=== PATIENT | male | born 1985 | race Caucasian/White ===

== ENCOUNTER → 2017-02-19 | Outpatient (REF) | payer OTHER | LOC: M LAB REF 08:54 | PROVIDERS: ATTEND Physician Assistant | DX: J02.9 Acute pharyngitis, unspecified (principal) ==

== ENCOUNTER → 2017-03-16 | Outpatient (REF) | payer OTHER | LOC: M LAB REF 12:00 | PROVIDERS: ATTEND Physician Assistant Medical | DX: J02.9 Acute pharyngitis, unspecified (principal) ==

== ENCOUNTER 2017-07-22 09:52 | Emergency (ER) | payer OTHER | END 2017-07-22 11:41 | disposition home or self-care (01) | LOC: M ED 09:52 | DX: L05.01 Pilonidal cyst with abscess (principal); F33.9 Major depressive disorder, recurrent, unspecified; Z79.899 Other long term (current) drug therapy; F17.210 Nicotine dependence, cigarettes, uncomplicated | CPT/HCPCS: 87186 ==

== ENCOUNTER 2017-08-13 09:10 | Day surgery (SDC) | payer OTHER ==
[2017-08-13] MEDS ORDERED: fentaNYL 100 MCG/2 ML INJECTION (J3010) As Ordered (09:59)
[2017-08-13] MEDS ORDERED: MIDAZOLAM INJ 2 MG/2 ML VIAL (J2250) As Ordered ×2 (09:59→11:09)
[2017-08-13] MEDS ORDERED: PROPOFOL 200 MG/20 ML VIAL As Ordered (09:59)
[2017-08-13] MEDS: LR 1,000 ML IV (10:16)
[2017-08-13] MEDS ORDERED: KETOROLAC 60 MG/2 ML VIAL (J1885) As Ordered (11:19)
[2017-08-13] MEDS ORDERED: CHLOROPROCAINE 2 % INJ PRES.FREE 20 ML VIAL (J2400) As Ordered (11:19)
[2017-08-13] MEDS ORDERED: ONDANSETRON 4MG/2ML VIAL (J2405) As Ordered ×2 (11:19→11:46)
[2017-08-13] MEDS: ONDANSETRON 4MG/2ML VIAL (J2405) IV (11:45)
[2017-08-13] MEDS ORDERED: PERCOCET 5MG/325MG TAB PO (12:30)
[2017-08-13] MEDS ORDERED: NORCO, ANEXSIA 5/325MG TABLET (HYDROcodone/ACETAMINOPHEN) PO (12:30)
[2017-08-13] MEDS ORDERED: LR 1,000 ML IV (12:30)
[2017-08-13] MEDS ORDERED: fentaNYL 100 MCG/2 ML INJECTION (J3010) IV (12:30)
== END 2017-08-13 13:00 | disposition home or self-care (01) ==
LOC: M SDC 09:10
DX: L05.91 Pilonidal cyst without abscess (principal); F41.9 Anxiety disorder, unspecified; F32.9 Major depressive disorder, single episode, unspecified; Z79.899 Other long term (current) drug therapy; Z72.0 Tobacco use; Z86.19 Personal history of other infectious and parasitic diseases
CPT/HCPCS: 11770

== ENCOUNTER 2017-08-18 17:35 | Emergency (ER) | payer OTHER | END 2017-08-18 18:48 | disposition home or self-care (01) | LOC: M ED 17:35 | DX: L76.21 Postprocedural hemorrhage of skin and subcutaneous tissue following a dermatologic procedure (principal); K59.00 Constipation, unspecified; F17.200 Nicotine dependence, unspecified, uncomplicated | CPT/HCPCS: 99282 ==

== ENCOUNTER 2017-09-12 06:51 | Emergency (ER) | payer OTHER ==
[2017-09-12 08:49] LABS: INFLUENZA A AMPLIFICATION POSITIVE (NEGATIVE); INFLUENZA B AMPLIFICATION NEGATIVE (NEGATIVE)
== END 2017-09-12 09:08 | disposition home or self-care (01) ==
LOC: M ED 06:51
DX: J09.X2 Influenza due to identified novel influenza A virus with other respiratory manifestations (principal); F32.9 Major depressive disorder, single episode, unspecified; F17.210 Nicotine dependence, cigarettes, uncomplicated; Z98.890 Other specified postprocedural states; Z79.899 Other long term (current) drug therapy
CPT/HCPCS: 87502

== ENCOUNTER 2018-07-10 13:10 | Emergency (ER) | payer OTHER ==
[~2018-07-10] VITALS: Ht 175.3 cm; Wt 99.1 kg
[~2018-07-10 13:10] MED LIST: AUGM875T28 PO; BACT800T5 PO; COLA100C5 PO; MIRA3350 PO; NORCOTAB PO; OSEL75CA PO; PARO15TA PO
[2018-07-10] MEDS ORDERED: DULO1CAP3 (13:16)
--- NOTE | 2018-07-10 14:22 | REP ---
CT Head without contrast HISTORY: Headache COMPARISON: None There is no intraparenchymal hemorrhage, acute infarct, mass or midline shift. The ventricular system is normal in appearance. There is no extra cerebral collection. There is no fracture. The visualized sinuses are clear. IMPRESSION: There is no intracranial lesion. Electronically Signed by Axel Miranda MD 07/10/2018 02:13 P
[2018-07-10 14:30] VITALS: BP 118/76
== END 2018-07-10 14:39 | disposition home or self-care (01) ==
LOC: M ED 13:10
DX: R51 Headache (principal); H53.8 Other visual disturbances; F32.9 Major depressive disorder, single episode, unspecified; Z72.0 Tobacco use; Z79.899 Other long term (current) drug therapy

== ENCOUNTER 2018-07-15 11:59 | Emergency (ER) | payer OTHER | END 2018-07-15 13:49 | disposition home or self-care (01) | LOC: M ED 11:59 | DX: K92.0 Hematemesis (principal); F32.9 Major depressive disorder, single episode, unspecified; F17.200 Nicotine dependence, unspecified, uncomplicated; Z79.899 Other long term (current) drug therapy | CPT/HCPCS: 71046 ==

== ENCOUNTER 2018-12-28 11:16 | Emergency (ER) | payer OTHER ==
[~2018-12-28] VITALS: Ht 177.8 cm; Wt 98.7 kg
[~2018-12-28 11:16] MED LIST changes: +DULO1CAP3; +HYDR-3715 PO; -NORCOTAB PO
[2018-12-28] MEDS ORDERED: IBUPROFEN 800 MG TAB PO ONE (12:30)
--- NOTE | 2018-12-28 12:46 | REP ---
SCROTAL ULTRASOUND: Real-time sonographic evaluation of the scrotum and contents performed. Testicles are normal in size and echotexture, right testicle measuring 5.6 x 3.2 x 3.3 cm and left testicle 4.7 x 2.8 x 3.6 cm. There is no testicular mass or torsion. Blood flow is seen in each testicle with duplex Doppler evaluation, RI right testicle 0.59 and left testicle 0.56. There are small bilateral hydroceles greater on the right than on the left. A few tiny intratesticular calcifications are seen bilaterally of doubtful significance. Cyst of the right epididymis measures 5 mm in maximum diameter. IMPRESSION: No testicular mass or torsion. No testicular hematoma. Small bilateral hydroceles right greater than left. Electronically Signed by Antonio Aldrich MD 12/29/2018 11:56 A
[2018-12-28 13:22] VITALS: BP 133/82
== END 2018-12-28 13:26 | disposition home or self-care (01) ==
LOC: M ED 11:16
DX: N50.819 Testicular pain, unspecified (principal); N50.82 Scrotal pain; F32.9 Major depressive disorder, single episode, unspecified; R51 Headache; Z72.0 Tobacco use; Z79.899 Other long term (current) drug therapy

== ENCOUNTER 2019-04-29 09:58 | Emergency (ER) | payer OTHER ==
[~2019-04-29] VITALS: Ht 175.3 cm; Wt 97.7 kg
[~2019-04-29 09:58] MED LIST changes: -DULO1CAP3; +DULO1CAP6
[2019-04-29 09:59] VITALS: BP 140/67
[2019-04-29] MEDS ORDERED: KETOROLAC TROMETHAMINE 10 MG TAB PO ONE (10:30)
--- NOTE | 2019-04-29 10:49 | REP ---
RIGHT SHOULDER, THREE VIEWS: There is no evidence of an acute fracture, dislocation or intrinsic bone disease. IMPRESSION: No fracture or dislocation. Electronically Signed by Antonio Aldrich MD 04/29/2019 05:53 P
[2019-04-29] MEDS ORDERED: CYCL5TAB PO (11:00)
== END 2019-04-29 11:11 | disposition home or self-care (01) ==
LOC: M ED 09:58
DX: S43.401A Unspecified sprain of right shoulder joint, initial encounter (principal); X50.9XXA Other and unspecified overexertion or strenuous movements or postures, initial encounter; Y92.129 Unspecified place in nursing home as the place of occurrence of the external cause; Y93.F2 Activity, caregiving, lifting; Y99.0 Civilian activity done for income or pay; F33.9 Major depressive disorder, recurrent, unspecified; F17.210 Nicotine dependence, cigarettes, uncomplicated; Z79.899 Other long term (current) drug therapy

== ENCOUNTER → 2020-03-03 | Outpatient (CLI) | payer OTHER ==
[~2020-03-03] MED LIST changes: +CHAN1PAK13 PO; +CYCL5TAB PO; +KEFL500C17 PO; -PARO15TA PO; +PARO30TA4 PO; +ROBA750T4 PO
== END ==
LOC: M LABSMTC 09:30
PROVIDERS: ATTEND Pediatrics
DX: Z11.59 Encounter for screening for other viral diseases (principal)

== ENCOUNTER 2020-03-30 06:29 | Emergency (ER) | payer OTHER ==
[~2020-03-30] VITALS: Ht 175.3 cm; Wt 108.0 kg
[~2020-03-30 06:29] MED LIST changes: -CHAN1PAK13 PO; -KEFL500C17 PO; -ROBA750T4 PO
[2020-03-30 06:30] VITALS: BP 131/78
[2020-03-30] MEDS ORDERED: CHAN1PAK13 PO (06:39)
[2020-03-30] MEDS ORDERED: ROBA750T4 PO (07:11)
== END 2020-03-30 07:24 | disposition home or self-care (01) ==
LOC: M ED 06:29
DX: S39.012A Strain of muscle, fascia and tendon of lower back, initial encounter (principal); W18.40XA Slipping, tripping and stumbling without falling, unspecified, initial encounter; Y92.129 Unspecified place in nursing home as the place of occurrence of the external cause; Y93.F9 Activity, other caregiving; Y99.0 Civilian activity done for income or pay; M54.9 Dorsalgia, unspecified; G89.29 Other chronic pain; F41.9 Anxiety disorder, unspecified; F17.210 Nicotine dependence, cigarettes, uncomplicated; Z79.899 Other long term (current) drug therapy

== ENCOUNTER 2020-06-05 02:52 | Emergency (ER) | payer OTHER ==
[~2020-06-05] VITALS: Ht 177.8 cm; Wt 106.8 kg
[~2020-06-05 02:52] MED LIST changes: +CHAN1PAK13 PO; +ROBA750T4 PO
[2020-06-05 06:42] VITALS: BP 132/78
[2020-06-05] MEDS ORDERED: CEPHALEXIN 500 MG CAP PO ONE (06:45)
[2020-06-05] MEDS ORDERED: KEFL500C17 PO (06:47)
== END 2020-06-05 06:52 | disposition home or self-care (01) ==
LOC: M ED 02:52
DX: J02.0 Streptococcal pharyngitis (principal)

== ENCOUNTER → 2020-06-09 | Outpatient (REF) | payer SELFPAY ==
[~2020-06-09] MED LIST changes: +KEFL500C17 PO
== END ==
LOC: M LABSMTC 08:00 → EDSTATUS 13:35 → M LABSMTC 13:44
PROVIDERS: ATTEND Pediatrics
DX: Z20.828 Contact with and (suspected) exposure to other viral communicable diseases (principal)

== ENCOUNTER 2020-09-07 13:15 | Emergency (ER) | payer OTHER ==
[~2020-09-07] VITALS: Ht 177.8 cm; Wt 104.3 kg
--- OUTSIDE RECORDS SUMMARY | 2020-09-07 13:27 | CCD ---
Continuity of Care Document (CCD) Created on: 06/09/2020 [employer] External Reference #: [id number] : [id number] Sex: Male Author Author Sky VIEIRA PA Organization Unknown Address [address] [place] [address] [place] [address] Phone [phone] Care Team Providers Care Systems Support Officer Name Role Phone [employer] AUTM [phone] [employer] [phone] Problems Description No Information Available Social History Type Date Description Comments Sex Unknown ETOH Use Drinks Alcoholic Beverages Rarel y Tobacco Use Start: Unknown Patient is a current smoker, smo kes every day 1 PPD Smoking Status Reviewed: 06/09/20 Patient is a current smoker, smokes every day 1 PPD Allergies, Adverse Reactions, Alerts Description No Known Drug Allergies Medications Active Medications SIG Qnty Indications Ordering Provide r Date Prednisone 20mg Tablets 1 tabs three x daily for 5 days 15tabs J20.9 Faisal Nj JR., M.D. Duloxetine HCL 60mg Caps DR Briggs qd Unknown Cephalexin 500mg Capsules Unknown Tylenol Cold/Flu Severe [id number] Tablets Last dose last night Unknown 00/0 000 History Medications No Active Medications Unknown - 06/09/2020 Immunizations Description No Information Available Vital Signs Date Vital Result Comment 06/09/2020 10:26am BP Systolic 136 mmHg BP Diastolic 86 mmHg Heart Rate 82 /min Respiratory Rate 14 /min O2 % BldC Oximetry 97 % Body Temperature 98.4 F Weight 235.00 lb Pain Level 5 03/09/2016 8:13am BP Systolic 120 mmHg BP Diastolic 84 mmHg Heart Rate 65 /min Respiratory Rate 18 /min O2 % BldC Oximetry 98 % Body Temperature 97.1 F Weight 200.00 lb Height 69 inches 5'9" BMI (Body Mass Index) 29.5 kg/m2 Pain Level 8 Results Description No Information Available Procedures Description No Information Available Medical Devices Description No Information Available Encounters Type Date Location Provider Dx Diagnosis Office Visit 06/09/2020 10:15a Main Office ERNESTINA Horn J20.9 Acute bronchitis, unspecified Z20.828 Contact w and exposure to ot h viral communicable diseases Assessments Date Code Description Provider 06/09/2020 J20.9 Acute bronchitis, unspecified ERNESTINA May 06/09/2020 Z20.828 Contact with and (be spected) exposure to other viral communicable diseases ERNESTINA Horn Plan of Treatment No Information Available Functional Status Description No Information Available Mental Status Description No Information Available Referrals Description No Information Available
--- OUTSIDE RECORDS SUMMARY | 2020-09-07 13:27 | CCD ---
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 Name Role Phone Sylvie LORENZANA MD Unavailable Unavailable Sylvie LORENZANA MD Unavailable Unavailable Sylvie LORENZANA MD Unavailable Unavailable Sylvie LORENZANA MD Unavailable Unavailable Sylvie LORENZANA MD Unavailable Unavailable Sylvie LORENZANA MD Unavailable Unavailable Sylvie LORENZANA MD Unavailable Unavailable Sylvie LORENZANA MD Unavailable Unavailable Sylvie LORENZANA MD Unavailable Unavailable Sylvie LORENZANA MD Unavailable Unavailable Sylvie LORENZANA MD Unavailable Unavailable Sylvie LORENZANA MD Unavailable Unavailable Sylvie LORENZANA MD Unavailable Unavailable Sylvie LORENZANA MD Unavailable Unavailable Sylvie LORENZANA MD Unavailable Unavailable Sylvie LORENZANA MD Unavailable Unavailable Sylvie LORENZANA MD Unavailable Unavailable Sylvie LORENZANA MD Unavailable Unavailable Sylvie LORENZANA MD Unavailable Unavailable Sylvie LORENZANA MD Unavailable Unavailable Sylvie LORENZANA MD Unavailable Unavailable Sylvie LORENZANA MD Unavailable Unavailable Sylvie LORENZANA MD Unavailable Unavailable Sylvie LORENZANA MD Unavailable Unavailable Sylvie LORENZANA MD Unavailable Unavailable Sylvie LORENZANA MD Unavailable Unavailable Sylvie LORENZANA MD Unavailable Unavailable Sylvie LORENZANA MD Unavailable Unavailable Sylvie LORENZANA MD Unavailable Unavailable Sylvie LORENZANA MD Unavailable Unavailable Sylvie LORENZANA MD Unavailable Unavailable Sylvie LORENZANA MD Unavailable Unavailable Sylvie LORENZANA MD Unavailable Unavailable Sylvie LORENZANA MD Unavailable Unavailable Sylvie LORENZANA MD Unavailable Unavailable Sylvie LORENZANA MD Unavailable Unavailable Sylvie LORENZANA MD Unavailable Unavailable Sylvie LORENZANA MD Unavailable Unavailable Sylvie LORENZANA MD Unavailable Unavailable Sylvie LORENZANA MD Unavailable Unavailable Sylvie LORENZANA MD Unavailable Unavailable Sylvie LORENZANA MD Unavailable Unavailable Sylvie LORENZANA MD Unavailable Unavailable Sylvie LORENZANA MD Unavailable Unavailable Sylvie LORENZANA MD Unavailable Unavailable Sylvie LORENZANA MD Unavailable Unavailable Sylvie LORENZANA MD Unavailable Unavailable Sylvie LORENZANA MD Unavailable Unavailable Sylvie LORENZANA MD Unavailable Unavailable Sylvie LORENZANA MD Unavailable Unavailable Sylvie LORENZANA MD Unavailable Unavailable Sylvie LORENZANA MD Unavailable Unavailable Sylvie LORENZANA MD Unavailable Unavailable Sylvie LORENZANA MD Unavailable Unavailable Sylvie LORENZANA MD Unavailable Unavailable Sylvie LORENZANA MD Unavailable Unavailable Sylvie LORENZANA MD Unavailable Unavailable Sylvie LORENZANA MD Unavailable Unavailable Sylvie LORENZANA MD Unavailable Unavailable Sylvie LORENZANA MD Unavailable Unavailable Sylvie LORENZANA MD Unavailable Unavailable Sylvie LORENZANA MD Unavailable Unavailable Sylvie LORENZANA MD Unavailable Unavailable Sylvie LORENZANA MD Unavailable Unavailable Sylvie LORENZANA MD Unavailable Unavailable Sylvie LORENZANA MD Unavailable Unavailable Sylvie LORENZANA MD Unavailable Unavailable Sylvie LORENZANA MD Unavailable Unavailable Sylvie LORENZANA MD Unavailable Unavailable Sylvie LORENZANA MD Unavailable Unavailable Sylvie LORENZANA MD Unavailable Unavailable Sylvie LORENZANA MD Unavailable Unavailable Sylvie LORENZANA MD Unavailable Unavailable Sylvie LORENZANA MD Unavailable Unavailable Sylvie LORENZANA MD Unavailable Unavailable Sylvie LORENZANA MD Unavailable Unavailable Jacqueline Fowler [facility], PA-C Unavailable Unavailabl e Fish, Jacqueline [facility] Unavailable Unavailabl e Fish, [facility]eline [facility] Unavailable Unavailabl e Fish, [facility] Unavailable Unavailabl e Fish, [facility], [facility]C Unavailable Unavailabl e Fish, [facility], PA[facility]C Unavailable Unavailabl e Fish, [facility], PA[facility]C Unavailable Unavailabl e Fish, [facility], PA[facility]C Unavailable Unavailabl e Fish, [facility], PA[facility]C Unavailable Unavailabl e Fish, Jacqueline Medina [facility], PA-C Unavailable Unavailabl e Fish, [facility]eline [facility], [facility]C Unavailable Unavailabl e Fish, [facility]eline [facility], [facility]C Unavailable Unavailabl e Fish, [facility], PA-C Unavailable Unavailabl e Fish, [facility], PA-C Unavailable Unavailabl e Fish, [facility], PA-C Unavailable Unavailabl e Fish, [facility], PA-C Unavailable Unavailabl e Fish, [facility], PA-C Unavailable Unavailabl e Fish, [facility], PA-C Unavailable Unavailabl e Fish, [facility], PA-C Unavailable Unavailabl e Fish, [facility], PA-C Unavailable Unavailabl e Fish, [facility], PA-C Unavailable Unavailabl e Fish, [facility], PA-C Unavailable Unavailabl e Fish, [facility], PA-C Unavailable Unavailabl e Fish, [facility], PA-C Unavailable Unavailabl e Fish, [facility], PA-C Unavailable Unavailabl e Fish, [facility], PA-C Unavailable Unavailabl e Fish, [facility], PA-C Unavailable Unavailabl e Fish, [facility], PA-C Unavailable Unavailabl e Fish, [facility], PA-C Unavailable Unavailabl e Fish, [facility], PA-C Unavailable Unavailabl e Fish, [facility], PA-C Unavailable Unavailabl e Fish, [facility], PA-C Unavailable Unavailabl e Fish, [facility], PA-C Unavailable Unavailabl e PeñaCalista Unavailable Unavailable PeñaCalista Unavailable Unavailable PeñaCalista Unavailable Unavailable PeñaCalista Unavailable Unavailable PeñaCalista Unavailable Unavailable PeñaCalista Unavailable Unavailable PeñaCalista Unavailable Unavailable PeñaCalista Unavailable Unavailable PeñaCalista PA Unavailable Unavailable PeñaCalista Unavailable Unavailable Re-disclosure Warning The records that you are about to access may contain information from federally-assisted alcohol or drug abuse programs. If such information is present, then the following federally mandated warning applies: This information has been disclosed to you from records protected by federal confidentiality rules (42 CFR part 2). The federal rules prohibit you from making any further disclosure of this information unless further disclosure is expressly permitted by the written consent of the person to whom it pertains or as otherwise permitted by 42 CFR part 2. A general authorization for the release of medical or other information is NOT sufficient for this purpose. The Federal rules restrict any use of the information to criminally investigate or prosecute any alcohol or drug abuse patient.The records that you are about to access may contain highly sensitive health information, the redisclosure of which is protected by Article 27-F of the [facility] Public Health law. If you continue you may have access to information: Regarding HIV / AIDS; Provided by facilities licensed or operated by the [facility] Office of Mental Health; or Provided by the [facility] Office for People With Developmental Disabilities. If such information is present, then the following [facility] mandated warning applies: This information has been disclosed to you from confidential records which are protected by state law. State law prohibits you from making any further disclosure of this information without the specific written consent of the person to whom it pertains, or as otherwise permitted by law. Any unauthorized further disclosure in violation of state law may result in a fine or detention sentence or both. A general authorization for the release of medical or other information is NOT sufficient authorization for further disc losure. Family History Family Member Name Family Member Gender Family Member Status Date o f Status Description Data Source(s) Unknown Male Problem [facility] ) Unknown Unknown Problem [facility] ([facility], [facility]) Encounters Encounter Providers Location Date Indications Data Source(s ) Outpatient Attender: Claire thomas 06/09/2020 09:15:00 AM EST [facility] ([facility]) OFFICE OUTPATIENT NEW 30 MINUTES Attender: Carol RICHARDSON PA-C Physical Therapy 05/30/2020 12:30:00 PM EST [facility] ([facility] ) Outpatient Attender: AMANDA LORENZANA MD [facility] 01:30:00 PM EDT [facility] ([facility] Medications Medication Brand Name Start Date Product Form Dose Route Admi nistrative Instructions Pharmacy Instructions Status Indications Reaction Description Data Source(s) 250 mg 07/25/2020 12:00:00 AM EST tablet 6 TAKE 2 TABLETS BY MOUTH AT ONCE ON DAY 1 THEN TAKE 1 DAILY DAYS 2-5 TAKE 2 TABLETS BY MOUTH AT ONCE ON DAY 1 THEN TAKE 1 DAILY DAYS 2-5 SOLD: 07/25/2020 [facility] 20 mg 07/25/2020 12:00:00 AM EST tablet 7 TAKE ONE TABLET BY MOUTH EVERY DAY FOR 7 DAYS TAKE ONE TABLET BY MOUTH EVERY DAY FOR 7 DAYS SOLD: 07/25/2020 [facility] 90 mcg/actuation 07/25/2020 12:00:00 AM EST HFA aerosol inha ler 8 INHALE TWO PUFFS BY MOUTH THREE TIMES A DAY FOR 10 DAYS INHALE TWO PUFFS BY MOUTH THREE TIMES A DAY FOR 10 DAYS SOLD: 07/25/2020 [facility] 60 mg 07/03/2020 12:00:00 AM EST capsule,delayed release (DR/EC) 90 TAKE ONE CAPSULE BY MOUTH EVERY DAY TAKE ONE CAPSULE BY MOUTH EVERY DAY SOLD: 07/10/2020 [facility] Prednisone 20 MG Oral Tablet Prednisone 06/09/2020 12:00:00 AM EST active [facility] ([facility]) 20 mg 06/09/2020 12:00:00 AM EST tablet 15 TAKE ONE TABLET BY MOUTH THREE TIMES A DAY FOR 5 DAYS TAKE ONE TABLET BY MOUTH THREE TIMES A DAY FOR 5 DAYS SOLD: 06/09/2020 [facility] No Active Medications 06/09/2020 12:00:00 AM EST completed [facility] ([facility]) Cephalexin 500 MG Oral Capsule CEPHALEXIN 06/05/2020 12:00:00 AM EST capsule 19 TAKE 1 CAPSULE [500MG] BY MOUTH EVERY 12 HOURS TAKE 1 CAPSULE [500MG] BY MOUTH EVERY 12 HOURS SOLD: 06/05/[address] [facility] [address] [facility] 1 mg 04/04/2020 12:00:00 AM EDT tablet 56 TAKE BY MOUTH DIRECTED TAKE BY MOUTH DIRECTED SOLD: 04/05/2020 [facility] 750 mg 03/30/2020 12:00:00 AM EDT tablet 30 TAKE ONE TABLET BY MOUTH THREE TIMES A DAY TAKE ONE TABLET BY MOUTH THREE TIMES A DAY SOLD: 03/31/2020 [facility] 1 mg 01/03/2020 12:00:00 AM EDT tablet 56 TAKE BY MOUTH DIRECTED TAKE BY MOUTH DIRECTED SOLD: 03/08/2020 [facility] 1 mg 01/03/2020 12:00:00 AM EDT tablet 56 TAKE BY MOUTH DIRECTED TAKE BY MOUTH DIRECTED SOLD: 02/07/2020 [facility] 1 mg 01/03/2020 12:00:00 AM EDT tablet 56 TAKE BY MOUTH DIRECTED TAKE BY MOUTH DIRECTED SOLD: 01/09/2020 [facility] 20 mg 10/02/2019 12:00:00 AM EST tablet 7 TAKE ONE TABLET BY MOUTH EVERY DAY FOR 7 DAYS TAKE ONE TABLET BY MOUTH EVERY DAY FOR 7 DAYS SOLD: 10/02/2019 [facility] 1 mg 09/19/2019 12:00:00 AM EST tablet 56 TAKE BY MOUTH DIRECTED TAKE BY MOUTH DIRECTED SOLD: 09/20/2019 [facility] 1 mg 09/19/2019 12:00:00 AM EST tablet 56 TAKE BY MOUTH DIRECTED TAKE BY MOUTH DIRECTED SOLD: 11/05/2019 [facility] 1 mg 09/19/2019 12:00:00 AM EST tablet 56 TAKE BY MOUTH DIRECTED TAKE BY MOUTH DIRECTED SOLD: 12/08/2019 [facility] 0.5 mg (11)- 1 mg (42) 08/21/2019 12:00:00 AM EST tablets,do se pack 53 TAKE BY MOUTH DIRECTED TAKE BY MOUTH DIRECTED SOLD: 08/21/2019 [facility] Chantix Starting Month Luca Chantix Starting Month [facility] 2019 12:00:00 AM EST active MED[facility] ([facility] Chantix Continuing Month Luca Chantix Continuing Month [facility] 12:00:00 AM EST active [facility] ([facility] 60 mg 06/29/2019 12:00:00 AM EST capsule,delayed release (DR/EC) 30 TAKE ONE CAPSULE BY MOUTH EVERY DAY TAKE ONE CAPSULE BY MOUTH EVERY DAY SOLD: 01/09/2020 [facility] 60 mg 06/29/2019 12:00:00 AM EST capsule,delayed release (DR/EC) 30 TAKE ONE CAPSULE BY MOUTH EVERY DAY TAKE ONE CAPSULE BY MOUTH EVERY DAY SOLD: 12/08/2019 [facility] 60 mg 06/29/2019 12:00:00 AM EST capsule,delayed release (DR/EC) 30 TAKE ONE CAPSULE BY MOUTH EVERY DAY TAKE ONE CAPSULE BY MOUTH EVERY DAY SOLD: 10/02/2019 [facility] 60 mg 06/29/2019 12:00:00 AM EST capsule,delayed release (DR/EC) 30 TAKE ONE CAPSULE BY MOUTH EVERY DAY TAKE ONE CAPSULE BY MOUTH EVERY DAY SOLD: 05/04/2020 [facility] 60 mg 06/29/2019 12:00:00 AM EST capsule,delayed release (DR/EC) 30 TAKE ONE CAPSULE BY MOUTH EVERY DAY TAKE ONE CAPSULE BY MOUTH EVERY DAY SOLD: 03/08/2020 [facility] 60 mg 06/29/2019 12:00:00 AM EST capsule,delayed release (DR/EC) 30 TAKE ONE CAPSULE BY MOUTH EVERY DAY TAKE ONE CAPSULE BY MOUTH EVERY DAY SOLD: 06/05/2020 [facility] 60 mg 06/29/2019 12:00:00 AM EST capsule,delayed release (DR/EC) 30 TAKE ONE CAPSULE BY MOUTH EVERY DAY TAKE ONE CAPSULE BY MOUTH EVERY DAY SOLD: 02/07/2020 [facility] 60 mg 06/29/2019 12:00:00 AM EST capsule,delayed release (DR/EC) 30 TAKE ONE CAPSULE BY MOUTH EVERY DAY TAKE ONE CAPSULE BY MOUTH EVERY DAY SOLD: 11/05/2019 [facility] 60 mg 06/29/2019 12:00:00 AM EST capsule,delayed release (DR/EC) 30 TAKE ONE CAPSULE BY MOUTH EVERY DAY TAKE ONE CAPSULE BY MOUTH EVERY DAY SOLD: 04/05/2020 [facility] Insurance Providers Payer name Policy type / Coverage type Policy ID Covered constitution party ID Covered constitution party's relationship to beckwith Policy Beckwith Plan Information R [facility] [id number] [place]2 [id number] SELF PAY SELF PAY ONLY [id number] SP [id number] PMA MANAGEMENT PAMELA [facility] [id number] SP [id number] PMA MANAGEMENT PAMELA [facility] [id number] SP [id number] [facility] [id number] [place]2 [id number] [facility] O [id number] S [id number] [employer] [id number] [place] [id number] [employer] [id number] [place] [id number] [employer] (H[employer]) [id number] Fa jj Dependent [id number] [employer] ([employer]) [id number] Fa jj Dependent [id number] [employer] [employer] Dependent [employer] [id number] SPO [id number] [employer] [id number] SP [id number] [facility] [employer] [place] [id number] SP [id number] WC-PENDING [id number] SP [id number] FIVE [employer] [id number] SP [id number] SELF PAY UNAVAILABLE SP UNAVAILA BLE [facility] [id number] SP [id number] Surgeries/Procedures Procedure Description Date Indications Data Source(s) [facility] FOOT COMPLETE MINIMUM 3 VIEWS 05/30/2020 12:00:0 0 AM EST [facility] ([facility]) Results ID Date Data Source [id number] 08/28/2020 07:30:00 AM EST [facility] Name Value Range Interpretation Code Description Data Jacqueline rce(s) Supporting Document(s) SARS coronavirus 2 RNA Not Detected [facility] [place] This lab was ordered by [facility] and reported by [facility]. ID Date Data Source [id number] 08/21/2020 08:00:00 AM EST [facility] Name Value Range Interpretation Code Description Data Jacqueline rce(s) Supporting Document(s) SARS coronavirus 2 RNA Not Detected [facility] [place] This lab was ordered by [facility] and reported by [facility]. ID Date Data Source [id number] 08/17/2020 12:00:00 AM EST [facility] Name Value Range Interpretation Code Description Data Jacqueline rce(s) Supporting Document(s) SARS coronavirus 2 Ag Negative [facility] This lab was ordered by [facility] and reported by [facility]. ID Date Data Source [id number] 08/14/2020 12:35:00 PM EST [facility] Name Value Range Interpretation Code Description Data Jacqueline rce(s) Supporting Document(s) SARS coronavirus 2 RNA Not Detected [facility] [place] This lab was ordered by [facility] and reported by [facility]. ID Date Data Source [id number] 08/10/2020 12:00:00 AM EST [facility] Name Value Range Interpretation Code Description Data Jacqueline rce(s) Supporting Document(s) SARS-CoV2 Rapid Antigen Negative [facility] This lab was ordered by [facility] and reported by [facility]. ID Date Data Source [id number] 08/07/2020 09:00:00 AM EST [facility] Name Value Range Interpretation Code Description Data Jacqueline rce(s) Supporting Document(s) SARS coronavirus 2 RNA Not Detected [facility] [place] This lab was ordered by [facility] and reported by [facility]. ID Date Data Source [id number] 07/31/2020 05:30:00 AM EST [facility] Name Value Range Interpretation Code Description Data Jacqueline rce(s) Supporting Document(s) SARS coronavirus 2 RNA Not Detected [facility] [place] This lab was ordered by [facility] and reported by [facility]. ID Date Data Source [id number] 07/03/2020 12:10:00 PM EST [facility] Name Value Range Interpretation Code Description Data Jacqueline rce(s) Supporting Document(s) SARS coronavirus 2 RNA [facility] This lab was ordered by [facility] and reported by [facility]. ID Date Data Source [id number] 06/14/2020 12:00:00 AM EST [facility] Name Value Range Interpretation Code Description Data Jacqueline rce(s) Supporting Document(s) SARS-CoV2 Rapid Antigen [facility] This lab was ordered by [facility] and reported by [facility]. ID Date Data Source [id number] 06/09/2020 01:35:00 PM EST [facility] Name Value Range Interpretation Code Description Data Jacqueline rce(s) Supporting Document(s) SARS coronavirus 2 RNA [facility] This lab was ordered by [facility] and reported by [facility]. ID Date Data Source [id number] 06/09/2020 12:00:00 AM EST [facility] Name Value Range Interpretation Code Description Data Jacqueline rce(s) Supporting Document(s) SARS coronavirus 2 Ag [facility] This lab was ordered by [facility] and reported by [facility]. ID Date Data Source [id number] 06/05/2020 08:00:00 AM EST [facility] Name Value Range Interpretation Code Description Data Jacqueline rce(s) Supporting Document(s) SARS coronavirus 2 RNA [facility] This lab was ordered by [facility] and reported by [facility]. ID Date Data Source [id number] 05/29/2020 02:00:00 PM EST [facility] Name Value Range Interpretation Code Description Data Jacqueline rce(s) Supporting Document(s) SARS coronavirus 2 RNA [facility] This lab was ordered by [facility] and reported by [facility]. ID Date Data Source [id number] 05/22/2020 01:00:00 PM EDT [facility] Name Value Range Interpretation Code Description Data Jacqueline rce(s) Supporting Document(s) SARS coronavirus 2 RNA [facility] This lab was ordered by [facility] and reported by [facility]. ID Date Data Source [id number] 05/15/2020 10:28:00 AM EDT [facility] Name Value Range Interpretation Code Description Data Jacqueline rce(s) Supporting Document(s) SARS coronavirus 2 RNA [facility] This lab was ordered by [facility] and reported by [facility]. ID Date Data Source [id number] 05/08/2020 08:00:00 AM EDT [facility] Name Value Range Interpretation Code Description Data Jacqueline rce(s) Supporting Document(s) SARS coronavirus 2 RNA [facility] This lab was ordered by [facility] and reported by [facility]. ID Date Data Source [id number] 05/01/2020 10:00:00 AM EDT [facility] Name Value Range Interpretation Code Description Data Jacqueline rce(s) Supporting Document(s) SARS coronavirus 2 RNA [facility] This lab was ordered by [facility] and reported by [facility]. ID Date Data Source [id number] 04/17/2020 01:15:00 PM EDT [facility] Name Value Range Interpretation Code Description Data Jacqueline rce(s) Supporting Document(s) SARS coronavirus 2 RNA [facility] This lab was ordered by [facility] and reported by [facility]. ID Date Data Source [id number] 04/05/2020 08:00:00 AM EDT [facility] Name Value Range Interpretation Code Description Data Jacqueline rce(s) Supporting Document(s) SARS coronavirus 2 RNA [facility] This lab was ordered by [facility] and reported by [facility]. ID Date Data Source [id number] 03/27/2020 09:32:00 AM EDT [facility] Name Value Range Interpretation Code Description Data Jacqueline rce(s) Supporting Document(s) SARS coronavirus 2 RNA [facility] This lab was ordered by [facility] and reported by [facility]. ID Date Data Source [id number] 03/20/2020 08:34:00 AM EDT [facility] Name Value Range Interpretation Code Description Data Jacqueline rce(s) Supporting Document(s) SARS coronavirus 2 RNA [facility] This lab was ordered by [facility] and reported by [facility]. ID Date Data Source [id number] 03/03/2020 09:30:00 AM EDT [facility] ([facility] Name Value Range Interpretation Code Description Data Jacqueline rce(s) Supporting Document(s) Laboratory test finding (navigational concept) Laboratory test r esult Normal (applies to non-numeric results) [facility] ([facility] A false negative result may occur if a s pecimen is improperly collected, transported or handled. False negative results may also occur if inadequate numbers of organisms are present in the specimen. As with any molecular test, mutations within the target regions of Xpert Xpress SARS-CoV-2 could affect primer and/or probe binding resulting in failure to detect the presence of virus. This test cannot rule out diseases caused by other bacterial or viral pathogens. DISCLAIMER: Testing was performed using the [employer] SARS-CoV-2 test. This test was developed and its performance characteristics determined by [employer]. This test has not been FDA cleared or approved. This test has been authorized by FDA under an Emergency Use Authorization (EUA). This test is only authorized for the duration of time the declaration that circumstances exist justifying the authorization of the emergency use of in vitro diagnostic tests for detection of SARS-CoV-2 virus and/or diagnosis of COVID-19 infection under section 564(b)(1) of the Act, 21 U.S.C. 360bbb-3(b)(1), unless the authorization is terminated or revoked sooner. ID Date Data Source [id number] 02/14/2020 10:00:00 AM EDT [facility] Name Value Range Interpretation Code Description Data Jacqueline rce(s) Supporting Document(s) SARS coronavirus 2 RNA [facility] This lab was ordered by [facility] and reported by [facility]. ID Date Data Source [id number] 02/07/2020 11:02:00 AM EDT [facility] Name Value Range Interpretation Code Description Data Jacqueline rce(s) Supporting Document(s) SARS coronavirus 2 RNA [facility] This lab was ordered by [facility] and reported by [facility]. ID Date Data Source [id number] 01/31/2020 01:10:00 PM EDT [facility] Name Value Range Interpretation Code Description Data Jacqueline rce(s) Supporting Document(s) SARS coronavirus 2 RNA [facility] This lab was ordered by [facility] and reported by [facility]. ID Date Data Source [id number] 01/24/2020 09:06:00 AM EDT [facility] Name Value Range Interpretation Code Description Data Jacqueline rce(s) Supporting Document(s) SARS CORONAVIRUS 2 RNA [facility] This lab was ordered by [facility] and reported by [facility]. ID Date Data Source [id number] 01/17/2020 02:05:00 PM EDT [facility] Name Value Range Interpretation Code Description Data Jacqueline rce(s) Supporting Document(s) SARS CORONAVIRUS 2 RNA [facility] This lab was ordered by [facility] and reported by [facility]. ID Date Data Source [id number] 01/10/2020 06:00:00 AM EDT [facility] Name Value Range Interpretation Code Description Data Jacqueline rce(s) Supporting Document(s) SARS CORONAVIRUS 2 RNA [facility] This lab was ordered by [facility] and reported by [facility]. ID Date Data Source [id number] 01/03/2020 11:25:00 AM EDT [facility] Name Value Range Interpretation Code Description Data Jacqueline rce(s) Supporting Document(s) SARS CORONAVIRUS 2 RNA [facility] This lab was ordered by [facility] and reported by [facility]. ID Date Data Source [id number] 12/30/2019 05:30:00 AM EDT [facility] Name Value Range Interpretation Code Description Data Jacqueline rce(s) Supporting Document(s) SARS CORONAVIRUS 2 RNA [facility] This lab was ordered by [facility] and reported by [facility]. ID Date Data Source [id number] 12/27/2019 05:30:00 AM EDT [facility] Name Value Range Interpretation Code Description Data Jacqueline rce(s) Supporting Document(s) SARS CORONAVIRUS 2 RNA [facility] This lab was ordered by [facility] and reported by [facility]. ID Date Data Source [id number] 12/23/2019 06:12:00 AM EDT [facility] Name Value Range Interpretation Code Description Data Jacqueline rce(s) Supporting Document(s) SARS CORONAVIRUS 2 RNA [facility] This lab was ordered by [facility] and reported by [facility]. ID Date Data Source [id number] 12/21/2019 06:00:00 AM EDT [facility] Name Value Range Interpretation Code Description Data Jacqueline rce(s) Supporting Document(s) SARS CORONAVIRUS 2 RNA [facility] This lab was ordered by [facility] and reported by [facility]. ID Date Data Source [id number] 12/15/2019 11:14:00 AM EDT [facility] Name Value Range Interpretation Code Description Data Jacqueline rce(s) Supporting Document(s) SARS CORONAVIRUS 2 RNA [facility] This lab was ordered by [facility] and reported by [facility]. ID Date Data Source [id number] 12/06/2019 10:29:00 AM EDT [facility] Name Value Range Interpretation Code Description Data Jacqueline rce(s) Supporting Document(s) SARS CORONAVIRUS 2 RNA [facility] This lab was ordered by [facility] and reported by [facility]. Procedure Vital Signs ID Date Data Source UNK Name Value Range Interpretation Code Description Data Source(s) Body weight 235.00 [lb_av] 235.00 [lb_av] MEDEN T ([facility], [facility]) Body temperature 98.4 [degF] 98.4 [degF] MEDENT ([facility], [facility]) Oxygen saturation in Arterial blood by Pulse oximetry 97 % 97 % MEDENT ([facility], [facility]) Respiratory rate 14 /min 14 /min MEDENT ( [facility], [facility]) Heart rate 82 /min 82 /min MEDENT ([facility], [facility]) Diastolic blood pressure 86 mm[Hg] 86 mm[Hg] MEDENT ([facility]) Systolic blood pressure 136 mm[Hg] 136 mm[Hg] M EDENT ([facility]) Oxygen saturation in Arterial blood by Pulse oximetry 98 % 98 % MEDENT ([facility] Body mass index (BMI) [Ratio] 34.0 kg/m2 34.0 k g/m2 MEDENT ([facility] [place] body weight 160 [lb_av] 160 [lb_av] MEDEN T ([facility] Body weight 235.00 [lb_av] 235.00 [lb_av] MEDEN T ([facility] Body height 69.75 [in_i] 69.75 [in_i] MEDENT ([facility] 5'9.75" Respiratory rate 18 /min 18 /min MEDENT ( [facility] Heart rate 84 /min 84 /min MEDENT ([facility] Body temperature 97.8 [degF] 97.8 [degF] MEDENT ([facility] Diastolic blood pressure 72 mm[Hg] 72 mm[Hg] MEDENT ([facility] Systolic blood pressure 114 mm[Hg] 114 mm[Hg] M EDENT ([facility] Oxygen saturation in Arterial blood by Pulse oximetry 96 % 96 % MEDENT ([facility] Body mass index (BMI) [Ratio] 31.2 kg/m2 31.2 k g/m2 MEDENT ([facility] [place] body weight 160 [lb_av] 160 [lb_av] MEDEN T ([facility] Body weight 216.00 [lb_av] 216.00 [lb_av] MEDEN T ([facility] Body height 69.75 [in_i] 69.75 [in_i] MEDENT ([facility] 5'9.75" Respiratory rate 18 /min 18 /min MEDENT ( [facility] Heart rate 100 /min 100 /min CARLY ([facility] Body temperature 98.9 [degF] 98.9 [degF] CARLY ([facility] Diastolic blood pressure 72 mm[Hg] 72 mm[Hg] CARLY ([facility] Systolic blood pressure 120 mm[Hg] 120 mm[Hg] Donaldo MCGRATH ([facility]
--- OUTSIDE RECORDS SUMMARY | 2020-09-07 13:27 | CCD | Continuity of Care Document ---
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 Name Role Phone MalcolmNahid DO AUTM [phone] Problems Description No Information Available Social History Type Date Description Comments Sex Unknown ETOH Use Denies alcohol use Tobacco Use Start: Unknown Patient is a current smoker, smo kes every day 1/2 ppd Allergies, Adverse Reactions, Alerts Description No Known Drug Allergies Medications Active Medications SIG Qnty Indications Ordering Provide r Date Duloxetine HCL 60mg Caps DR Part Unknown Immunizations Description No Information Available Vital Signs Description No Information Available Results Description No Information Available Procedures Date Code Description Status 05/30/2020 05111 X-Ray Foot Complete Completed Medical Devices Description No Information Available Encounters Type Date Location Provider Dx Diagnosis Office Visit 05/30/2020 1:30p [place] Carol Fowler PA-C M72.2 Plantar fascial fibromatosis Assessments Date Code Description Provider 05/30/2020 M72.2 Plantar fascial fibromatosis Vitaliy Fowler PA-C Plan of Treatment 05/30/2020 - Carol Fowler PA-C* M72.2 Plantar fascial fibromatosis* Follow up: * 4 week rt foot vic with [facility] Functional Status Description No Information Available Mental Status Description No Information Available Referrals Description No Information Available
--- OUTSIDE RECORDS SUMMARY | 2020-09-07 13:27 | CCD | Continuity of Care Document ---
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 Name Role Phone [employer]Sky RPA AUTM [phone] [place] [employer] AUTM [phone] Problems Description No Information Available Social History [...] Cephalexin 500mg Capsules Unknown Tylenol Cold/Flu Severe [id number] Tablets Last dose last night Unknown 00/0 [...] communicable diseases ERNESTINA Horn Plan of Treatment 06/09/2020 - ERNESTINA Horn* J20.9 Acute bronchitis, unspecified* New Medication:* Prednisone 20 mg - 1 tabs three x daily for 5 days * Z20.828 Contact with and (suspected) exposure to other viral communicable diseases* Comments:* POC rapid COVID neg today Functional Status Description No Information Available Mental Status Description No Information Available Referrals Description No Information Available
--- OUTSIDE RECORDS SUMMARY | 2020-09-07 13:35 | CCD ---
Author Author [facility] Organization [facility] Address Unknown Phone Unavailable Care Team Providers Care Staff Radiographer Name Role Phone Sylvie LORENZANA MD Unavailable [...] Sylvie LORENZANA MD Unavailable Unavailable Jacqueline Fowler [facility], PA-C Unavailable Unavailabl e Fish, [facility] Unavailable Unavailabl e Fish, [facility] Unavailable Unavailabl e Fish, [facility] Unavailable Unavailabl e Fish, [facility] Unavailable Unavailabl e Fish, [facility] Unavailable Unavailabl e Fish, [facility] Unavailable Unavailabl e Fish, [facility] Unavailable Unavailabl e Fish, [facility] Unavailable Unavailabl e Fish, Jacqueline Medina [facility], PA-C Unavailable Unavailabl e Fish, [facility] Unavailable Unavailabl e Fish, [facility] Unavailable Unavailabl e Fish, [facility], PA-C Unavailable Unavailabl e Fish, [facility], PA-C Unavailable Unavailabl e Fish, [facility], PA-C Unavailable Unavailabl e Fish, [facility], PA-C Unavailable Unavailabl e Fish, [facility], PA-C Unavailable Unavailabl e Fish, [facility], PA-C Unavailable Unavailabl e Fish, [facility], PA-C Unavailable Unavailabl e Fish, [facility], PA-C Unavailable Unavailabl e Fish, [facility], PA-C Unavailable Unavailabl e Fish, [facility], PA-C Unavailable Unavailabl e Fish, [facility], PA-C Unavailable Unavailabl e Fish, [facility], PA-C Unavailable Unavailabl e Fish, [facility], PA-C Unavailable Unavailabl e Fish, [facility], PA-C Unavailable Unavailabl e Fish, [facility], PA-C Unavailable Unavailabl e Fish, [facility], PA-C Unavailable Unavailabl e Fish, [facility], PA-C Unavailable Unavailabl e Fish, [facility], PA-C Unavailable Unavailabl e Fish, [facility], PA-C Unavailable Unavailabl e Fish, [facility], PA-C Unavailable Unavailabl e Fish, [facility], PA-C Unavailable Unavailabl e PeñaCalista Unavailable [...] is protected by Article 27-F of the [facility] Public Health law. If you continue you may have access to information: Regarding HIV / AIDS; Provided by facilities licensed or operated by the [facility] Office of Mental Health; or Provided by the [facility] Office for People With Developmental Disabilities. If such information is present, then the following [facility] mandated warning applies: This information has been [...] law may result in a fine or fpc sentence or both. A general authorization for the release of medical or other information is NOT sufficient authorization for further disc losure. Family History Family Member Name Family Member Gender Family Member Status Date o f Status Description Data Source(s) Unknown Male Problem [facility], ) Unknown Unknown Problem MEDENT ([facility]) Encounters Encounter Providers Location Date Indications Data Source(s ) Outpatient Attender: Claire thomas 06/09/2020 09:15:00 AM EST MEDENT ([facility]) OFFICE OUTPATIENT NEW 30 MINUTES Attender: Carol RICHARDSON PA-C Physical Therapy 05/30/2020 12:30:00 PM EST MEDENT ([facility] ) Outpatient Attender: AMANDA LORENZANA MD [facility] 01:30:00 PM EDT MEDENT ([facility] Medications Medication Brand Name [...] Prednisone 06/09/2020 12:00:00 AM EST active MEDENT ([facility]) 20 mg 06/09/2020 12:00:00 AM EST tablet 15 TAKE ONE TABLET BY MOUTH THREE TIMES A DAY FOR 5 DAYS TAKE ONE TABLET BY MOUTH THREE TIMES A DAY FOR 5 DAYS SOLD: 06/09/2020 [facility] No Active Medications 06/09/2020 12:00:00 AM EST completed MEDENT ([facility]) Cephalexin 500 MG Oral Capsule CEPHALEXIN 06/05/2020 [...] Chantix Starting Month Luca Chantix Starting Month [facility] 2019 12:00:00 AM EST active MEDENT ([facility] Chantix Continuing Month Luca Chantix Continuing Month [facility] 12:00:00 AM EST active MEDENT ([facility] 60 mg 06/29/2019 12:00:00 [...] type / Coverage type Policy ID Covered libertarian ID Covered libertarian's relationship to beckwith Policy Beckwith Plan Information R [facility] [id number] WI2 [id number] SELF PAY SELF PAY ONLY [id number] SP [id number] PMA MANAGEMENT [facility] [id number] SP [id number] PMA MANAGEMENT [facility] [id number] SP [id number] [facility] [id number] [place]2 [id number] [facility] O [id number] S [id number] [employer] [id number] [place] [id number] [employer] [id number] [place] [id number] [employer] (HMO) [id number] Fa jj Dependent [id number] [employer] (HMO) [id number] Fa jj Dependent [id number] [place] [employer] Dependent [employer] [id number] SPO [id number] [employer] [id number] SP 01 [id number] [employer]AS [employer] [place] [id number] SP [id number] WC-PENDING [id number] SP [id number] [employer] [id number] SP [id number] SELF PAY UNAVAILABLE SP UNAVAILA BLE [facility] [id number] SP [id number] Surgeries/Procedures Procedure Description Date Indications Data Source(s) RADEX FOOT COMPLETE MINIMUM 3 VIEWS 05/30/2020 12:00:0 0 AM EST MEDENT ([facility]) Results ID Date Data Source [id number] 08/28/2020 07:30:00 AM EST [facility] Name Value Range Interpretation Code Description Data Jacqueline rce(s) Supporting Document(s) SARS coronavirus 2 RNA Not Detected [facility] [place] This lab was ordered by [facility] and reported by [facility]. ID Date Data Source [id number] 08/21/2020 08:00:00 AM EST [facility] Name Value Range Interpretation Code Description Data Jacqueline rce(s) Supporting Document(s) SARS coronavirus 2 RNA Not Detected [facility] [place] This lab was ordered by [facility] and reported by [facility]. ID Date Data Source [id number] 08/17/2020 12:00:00 AM EST [facility] Name Value Range Interpretation Code Description Data Jacqueline rce(s) Supporting Document(s) SARS coronavirus 2 Ag Negative [facility] This lab was ordered by [facility] and reported by [facility]. ID Date Data Source [id number] 08/14/2020 12:35:00 PM EST [facility] Name Value Range Interpretation Code Description Data Jacqueline rce(s) Supporting Document(s) SARS coronavirus 2 RNA Not Detected [facility] [place] This lab was ordered by [facility] and reported by [facility]. ID Date Data Source [id number] 08/10/2020 12:00:00 AM EST [facility] Name Value Range Interpretation Code Description Data Jacqueline rce(s) Supporting Document(s) SARS-CoV2 Rapid Antigen Negative [facility] This lab was ordered by [facility] and reported by [facility]. ID Date Data Source [id number] 08/07/2020 09:00:00 AM EST [facility] Name Value Range Interpretation Code Description Data Jacqueline rce(s) Supporting Document(s) SARS coronavirus 2 RNA Not Detected [facility] [place] This lab was ordered by [facility] and reported by [facility]. ID Date Data Source [id number] 07/31/2020 05:30:00 AM EST [facility] Name Value Range Interpretation Code Description Data Jacqueline rce(s) Supporting Document(s) SARS coronavirus 2 RNA Not Detected [facility] [place] This lab was ordered by [facility] and reported by [facility]. ID Date Data Source [id number] 07/03/2020 12:10:00 PM EST [facility] Name Value Range Interpretation Code Description Data Jacqueline rce(s) Supporting Document(s) SARS coronavirus 2 RNA [facility] This lab was ordered by [facility] and reported by [facility]. ID Date Data Source [id number] 06/14/2020 12:00:00 AM EST [facility] Name Value Range Interpretation Code Description Data Jacqueline rce(s) Supporting Document(s) SARS-CoV2 Rapid Antigen [facility] This lab was ordered by [facility] and reported by [facility]. ID Date Data Source [id number] 06/09/2020 01:35:00 PM EST [facility] Name Value Range Interpretation Code Description Data Jacqueline rce(s) Supporting Document(s) SARS coronavirus 2 RNA [facility] This lab was ordered by [facility] and reported by [facility]. ID Date Data Source [id number] 06/09/2020 12:00:00 AM EST [facility] Name Value Range Interpretation Code Description Data Jacqueline rce(s) Supporting Document(s) SARS coronavirus 2 Ag [facility] This lab was ordered by [facility] and reported by [facility]. ID Date Data Source [id number] 06/05/2020 08:00:00 AM EST [facility] Name Value Range Interpretation Code Description Data Jacqueline rce(s) Supporting Document(s) SARS coronavirus 2 RNA [facility] This lab was ordered by [facility] and reported by [facility]. ID Date Data Source [id number] 05/29/2020 02:00:00 PM EST [facility] Name Value Range Interpretation Code Description Data Jacqueline rce(s) Supporting Document(s) SARS coronavirus 2 RNA [facility] This lab was ordered by [facility] and reported by [facility]. ID Date Data Source [id number] 05/22/2020 01:00:00 PM EDT [facility] Name Value Range Interpretation Code Description Data Jacqueline rce(s) Supporting Document(s) SARS coronavirus 2 RNA [facility] This lab was ordered by [facility] and reported by [facility]. ID Date Data Source [id number] 05/15/2020 10:28:00 AM EDT [facility] Name Value Range Interpretation Code Description Data Jacqueline rce(s) Supporting Document(s) SARS coronavirus 2 RNA [facility] This lab was ordered by [facility] and reported by [facility]. ID Date Data Source [id number] 05/08/2020 08:00:00 AM EDT [facility] Name Value Range Interpretation Code Description Data Jacqueline rce(s) Supporting Document(s) SARS coronavirus 2 RNA [facility] This lab was ordered by [facility] and reported by [facility]. ID Date Data Source [id number] 05/01/2020 10:00:00 AM EDT [facility] Name Value Range Interpretation Code Description Data Jacqueline rce(s) Supporting Document(s) SARS coronavirus 2 RNA [facility] This lab was ordered by [facility] and reported by [facility]. ID Date Data Source [id number] 04/17/2020 01:15:00 PM EDT [facility] Name Value Range Interpretation Code Description Data Jacqueline rce(s) Supporting Document(s) SARS coronavirus 2 RNA [facility] This lab was ordered by [facility] and reported by [facility]. ID Date Data Source [id number] 04/05/2020 08:00:00 AM EDT [facility] Name Value Range Interpretation Code Description Data Jacqueline rce(s) Supporting Document(s) SARS coronavirus 2 RNA [facility] This lab was ordered by [facility] and reported by [facility]. ID Date Data Source [id number] 03/27/2020 09:32:00 AM EDT [facility] Name Value Range Interpretation Code Description Data Jacqueline rce(s) Supporting Document(s) SARS coronavirus 2 RNA [facility] This lab was ordered by [facility] and reported by [facility]. ID Date Data Source [id number] 03/20/2020 08:34:00 AM EDT [facility] Name Value Range Interpretation Code Description Data Jacqueline rce(s) Supporting Document(s) SARS coronavirus 2 RNA [facility] This lab was ordered by [facility] and reported by [facility]. ID Date Data Source [id number] 03/03/2020 09:30:00 AM EDT MEDENT ([facility] Name Value Range Interpretation Code Description Data Jacqueline rce(s) Supporting Document(s) Laboratory test finding (navigational concept) Laboratory test r esult Normal (applies to non-numeric results) [facility] ([facility] A false [...] pathogens. DISCLAIMER: Testing was performed using the [employer] SARS-CoV-2 test. This test was developed and its performance characteristics determined by [employer]. This test has not been FDA cleared [...] or revoked sooner. ID Date Data Source [id number] 02/14/2020 10:00:00 AM EDT [facility] Name Value Range Interpretation Code Description Data Jacqueline rce(s) Supporting Document(s) SARS coronavirus 2 RNA [facility] This lab was ordered by [facility] and reported by [facility]. ID Date Data Source [id number] 02/07/2020 11:02:00 AM EDT [facility] Name Value Range Interpretation Code Description Data Jacqueline rce(s) Supporting Document(s) SARS coronavirus 2 RNA [facility] This lab was ordered by [facility] and reported by [facility]. ID Date Data Source [id number] 01/31/2020 01:10:00 PM EDT [facility] Name Value Range Interpretation Code Description Data Jacqueline rce(s) Supporting Document(s) SARS coronavirus 2 RNA [facility] This lab was ordered by [facility] and reported by [facility]. ID Date Data Source [id number] 01/24/2020 09:06:00 AM EDT [facility] Name Value Range Interpretation Code Description Data Jacqueline rce(s) Supporting Document(s) SARS CORONAVIRUS 2 RNA [facility] This lab was ordered by [facility] and reported by [facility]. ID Date Data Source [id number] 01/17/2020 02:05:00 PM EDT [facility] Name Value Range Interpretation Code Description Data Jacqueline rce(s) Supporting Document(s) SARS CORONAVIRUS 2 RNA [facility] This lab was ordered by [facility] and reported by [facility]. ID Date Data Source [id number] 01/10/2020 06:00:00 AM EDT [facility] Name Value Range Interpretation Code Description Data Jacqueline rce(s) Supporting Document(s) SARS CORONAVIRUS 2 RNA [facility] This lab was ordered by [facility] and reported by [facility]. ID Date Data Source [id number] 01/03/2020 11:25:00 AM EDT [facility] Name Value Range Interpretation Code Description Data Jacqueline rce(s) Supporting Document(s) SARS CORONAVIRUS 2 RNA [facility] This lab was ordered by [facility] and reported by [facility]. ID Date Data Source [id number] 12/30/2019 05:30:00 AM EDT [facility] Name Value Range Interpretation Code Description Data Jacqueline rce(s) Supporting Document(s) SARS CORONAVIRUS 2 RNA [facility] This lab was ordered by [facility] and reported by [facility]. ID Date Data Source [id number] 12/27/2019 05:30:00 AM EDT [facility] Name Value Range Interpretation Code Description Data Jacqueline rce(s) Supporting Document(s) SARS CORONAVIRUS 2 RNA [facility] This lab was ordered by [facility] and reported by [facility]. ID Date Data Source [id number] 12/23/2019 06:12:00 AM EDT [facility] Name Value Range Interpretation Code Description Data Jacqueline rce(s) Supporting Document(s) SARS CORONAVIRUS 2 RNA [facility] This lab was ordered by [facility] and reported by [facility]. ID Date Data Source [id number] 12/21/2019 06:00:00 AM EDT [facility] Name Value Range Interpretation Code Description Data Jacqueline rce(s) Supporting Document(s) SARS CORONAVIRUS 2 RNA [facility] This lab was ordered by [facility] and reported by [facility]. ID Date Data Source [id number] 12/15/2019 11:14:00 AM EDT [facility] Name Value Range Interpretation Code Description Data Jacqueline rce(s) Supporting Document(s) SARS CORONAVIRUS 2 RNA [facility] This lab was ordered by [facility] and reported by [facility]. ID Date Data Source [id number] 12/06/2019 10:29:00 AM EDT [facility] Name Value Range Interpretation Code Description Data Jacqueline rce(s) Supporting Document(s) SARS CORONAVIRUS 2 RNA [facility] This lab was ordered by [facility] and reported by [facility]. Procedure Vital Signs ID Date Data Source UNK Name Value Range Interpretation Code Description Data Source(s) Body weight 235.00 [lb_av] 235.00 [lb_av] MEDEN T ([facility]) Body temperature 98.4 [degF] 98.4 [degF] MEDENT ([facility]) Oxygen saturation in Arterial blood by Pulse oximetry 97 % 97 % MEDENT ([facility], [facility]) Respiratory rate 14 /min 14 /min MEDENT ( [facility]) Heart rate 82 /min 82 /min MEDENT ([facility]) Diastolic blood pressure 86 mm[Hg] 86 mm[Hg] MEDENT ([facility]) Systolic blood pressure 136 mm[Hg] 136 mm[Hg] M EDENT ([facility]) Oxygen saturation in Arterial blood by Pulse oximetry 98 % 98 % [facility] ([facility] Body mass index (BMI) [Ratio] 34.0 kg/m2 34.0 k g/m2 MED[facility] ([facility] [place] body weight 160 [lb_av] 160 [lb_av] MEDEN T ([facility] Body weight 235.00 [lb_av] 235.00 [lb_av] MEDEN T ([facility] Body height 69.75 [in_i] 69.75 [in_i] MEDENT ([facility] 5'9.75" Respiratory rate 18 [...] k g/m2 MED[facility] ([facility] [place] body weight 160 [lb_av] 160 [lb_av] MEDEN T ([facility] Body weight 216.00 [lb_av] 216.00 [lb_av] MEDEN T ([facility] Body height 69.75 [in_i] 69.75 [in_i] MEDENT ([facility] 5'9.75" Respiratory rate 18 /min 18 /min MEDENT ( [facility] Heart rate 100 /min 100 /min CARLY ([facility] Body temperature 98.9 [degF] 98.9 [degF] CARLY ([facility] Diastolic blood pressure 72 mm[Hg] 72 mm[Hg] CARLY ([facility] Systolic blood pressure 120 mm[Hg] 120 mm[Hg] Donaldo MCGRATH ([facility]
[2020-09-07] MEDS ORDERED: NS 1,000 ML IV ONE (14:45)
[2020-09-07 15:01] LABS: BASO % 0.5 % (0.0-1.0); EOS # 0.1 10^3/uL (0.0-0.5); EOS % 2.1 % (0.0-3.0); HEMATOCRIT 45.1 % (42.0-52.0); HEMOGLOBIN 15.5 g/dl (13.5-17.5); LYMPH # 1.9 10^3/uL (1.5-5.0); LYMPH % 33.7 % (24.0-44.0); MEAN CORPUSCULAR HEMOGLOBIN 30.5 pg (27.0-33.0); MEAN CORPUSCULAR HGB CONC 34.4 g/dl (32.0-36.5); MEAN CORPUSCULAR VOLUME 88.8 fl (80.0-96.0); MONO # 0.7 10^3/uL (0.0-0.8); MONO % 13.1 % (0.0-5.0); NEUTROPHILS # 2.9 10^3/uL (1.5-8.5); NEUTROPHILS % 50.4 % (36.0-66.0); PLATELET COUNT, AUTOMATED 276 10^3/uL (150-450); RED BLOOD COUNT 5.08 10^6/uL (4.30-6.10); WHITE BLOOD COUNT 5.7 10^3/uL (4.0-10.0)
[2020-09-07 15:13] LABS: INR 0.92; PROTHROMBIN TIME 12.5 SECONDS (12.5-14.3)
[2020-09-07 15:14] LABS: PARTIAL THROMBOPLASTIN TIME 28.2 SECONDS (24.2-38.5)
[2020-09-07 15:28] LABS: ALBUMIN 4.3 GM/DL (3.2-5.2); ALT/SGPT 54 U/L (12-78); BILIRUBIN,DIRECT 0.2 MG/DL (0.0-0.2); BILIRUBIN,TOTAL 1.7 MG/DL (0.2-1.0); CK-MB VALUE MASS 6.3 NG/ML (<3.6); CPK CREATINE PHOSPHOKINASE 298 U/L (39-308); MAGNESIUM LEVEL 2.2 MG/DL (1.8-2.4); MB/CK RELATIVE INDEX 2.11 (< OR =4); TOTAL PROTEIN 7.3 GM/DL (6.4-8.2); TROPONIN I < 0.02 NG/ML (< 0.10)
--- NOTE | 2020-09-07 16:29 | REP ---
INDICATION: severe cramping/pain lower calfs COMPARISON: None. TECHNIQUE: Real time compression and duplex Doppler interrogation of the bilateral lower extremity deep venous system is performed. FINDINGS: Bilaterally, the common femoral, superficial femoral and popliteal veins are fully compressible with transducer pressure and demonstrate normal spontaneous and phasic flow, without evidence of deep venous thrombosis. IMPRESSION: No evidence of deep venous thrombosis of the bilateral lower extremity femoral popliteal venous system. <Electronically signed by Antonio Aldrich > 09/07/20 [id number]
[2020-09-07 16:31] LABS: FREE T4 0.94 NG/DL (0.76-1.46); THYROID STIMULATING HORMONE 0.756 uIU/ML (0.358-3.740)
[2020-09-07 17:47] VITALS: BP 131/79
== END 2020-09-07 17:49 | disposition home or self-care (01) ==
LOC: M ED 13:15
DX: R25.2 Cramp and spasm (principal); E86.0 Dehydration; E80.7 Disorder of bilirubin metabolism, unspecified; F32.9 Major depressive disorder, single episode, unspecified; F17.200 Nicotine dependence, unspecified, uncomplicated; Z79.899 Other long term (current) drug therapy

== ENCOUNTER 2020-09-18 22:32 | Emergency (ER) | payer OTHER ==
[~2020-09-18] VITALS: Ht 177.8 cm; Wt 106.8 kg
--- OUTSIDE RECORDS SUMMARY | 2020-09-18 22:38 | CCD | Continuity of Care Document ---
Author Author Sky NESBITT M.D. Organization Unknown Address [address] [place] [address] Phone [phone] Problems Description No Information Available Social History Type Date Description Comments Sex Unknown ETOH Use Denies alcohol use Tobacco Use Start: Unknown Patient is a current smoker, smo kes every day 1/2 per day for 4 wks Recreational Drug Use Denies Drug Use Allergies, Adverse Reactions, Alerts Description No Known Drug Allergies Medications Active Medications SIG Qnty Indications Ordering Provide r Date Chantix Starting Month Luca 0.5mg X 11 & 1 mg X 42 Tablets as directed 1pack Alberto Nesbitt M.D. Chantix Continuing Month Luca 1mg T ablets Take By Mouth as Directed 56taAlberto Doe M.D . 08/20/2019 Viagra 100mg Tablets 1 by mouth every day as needed 6tabs Alberto Nesbitt M.D. 08/05/19 19 Duloxetine HCL 60[address] Part Take One Capsule By Mouth Every Day 90caps Alberto Nesbitt M. D. 06/05/2018 Immunizations Description No Information Available Vital Signs Date Vital Result Comment 03/10/2020 2:20pm BP Systolic 114 mmHg BP Diastolic 72 mmHg Body Temperature 97.8 F Heart Rate 84 /min Respiratory Rate 18 /min Height 69.75 inches 5'9.75" Weight 235.00 lb [place] Body Weight 160 lb BMI (Body Mass Index) 34.0 kg/m2 O2 % BldC Oximetry 98 % 08/20/2019 3:01pm BP Systolic 120 mmHg BP Diastolic 72 mmHg Body Temperature 98.9 F Heart Rate 100 /min Respiratory Rate 18 /min Height 69.75 inches 5'9.75" Weight 216.00 lb [place] Body Weight 160 lb BMI (Body Mass Index) 31.2 kg/m2 O2 % BldC Oximetry 96 % Results Test Acquired Date Facility Test Result H/L Range Note Istat Chem8+ Panel 09/07/2020 [facility] ([facility] [place]) [phone] iSTAT HCT 46.0 % Normal 38.0-51.0 iSTAT Glucose 102 mg/dL Normal 70-105 iSTAT Sodium 140 mEq/L Normal 136-145 iSTAT Potassium 4.2 mEq/L Normal 3.5-5.1 iSTAT CA++ 4.9 mg/dL Normal 4.5-5.3 iSTAT Chloride 100 mEq/L Normal 98-109 iSTAT Co2 32.0 MM/L High 23.0-27.0 iSTAT BUN 22 mg/dL Normal 8-26 iSTAT Creatinine 1.0 mg/dL Normal 0.6-1.3 CBC With Differential 09/07/2020 [facility] (Interface) [phone] White Blood Count 5.7 10 Normal 4.0-10.0 Red Blood Count 5.08 10 Normal 4.30-6.10 Hemoglobin 15.5 g/dL Normal 13.5-17.5 Hematocrit 45.1 % Normal 42.0-52.0 Mean Corpuscular Volume 88.8 fl Normal 80.0-96.0 Mean Corpuscular Hemoglobin 30.5 pg Normal 27.0-33.0 Mean Corpuscular HGB Conc 34.4 g/dL Normal 32.0-36.5 Red Cell Distribution Width 12.2 % Normal 11.5-14.5 Platelet Count, Automated 276 10 Normal 150-450 Neutrophils % 50.4 % Normal 36.0-66.0 Lymph % 33.7 % Normal 24.0-44.0 [place] % 13.1 % High 0.0-5.0 Eos % 2.1 % Normal 0.0-3.0 Baso % 0.5 % Normal 0.0-1.0 Immature Granulocyte % 0.2 % Normal 0-3.0 Nucleated Red Blood Cell % 0.0 % Normal 0-0 Neutrophils # 2.9 10 Normal 1.5-8.5 Lymph # 1.9 10 Normal 1.5-5.0 [place] # 0.7 10 Normal 0.0-0.8 Eos # 0.1 10 Normal 0.0-0.5 Baso # 0.0 10 Normal 0.0-0.2 PT & Aptt 09/07/2020 [facility]) [phone] Prothrombin Time 12.5 seconds Normal 12.5-14.3 Inr 0.92 Normal 1 Partial Thromboplastin Time 28.2 seconds Normal 24.2-38.5 Cardiac Marker Panel 09/07/2020 [facility] ( [facility]) [phone] CPK Creatine Phosphokinase 298 U/L Normal 39-30 8 CK-MB Value Mass 6.3 NG/ML High <3.6 MB/CK Relative Index 2.11 Normal < Or =4 2 Troponin I < 0.02 NG/ML Normal < 0.10 3 Liver Profile 09/07/2020 [facility]) [phone] Ast/Sgot 34 U/L Normal 7-37 Alt/SGPT 54 U/L Normal 12-78 Alkaline Phosphatase 80 U/L Normal 45-117 Bilirubin,Total 1.7 mg/dL High 0.2-1.0 Bilirubin,Direct 0.2 mg/dL Normal 0.0-0.2 Total Protein 7.3 GM/DL Normal 6.4-8.2 Albumin 4.3 GM/DL Normal 3.2-5.2 Albumin/Globulin Ratio 1.4 Normal Laboratory test finding 09/07/2020 [facility] (Interface) [phone] Magnesium Level 2.2 mg/dL Normal 1.8-2.4 FT4&TSH Panel 09/07/2020 [facility]) [phone] Thyroid Stimulating Hormone 0.756 uIU/ML Normal 0. 358-3.740 Free T4 0.94 ng/dL Normal 0.76-1.46 1 THERAPUTIC HUMAN INR VALUES INDICATIONS NORMAL RANGES PROPHYLAXIS/TREATMENT OF: VENOUS THROMBOSIS 2.0-3.0 PULMONARY EMBOLISM 2.0-3.0 PREVENTION OF SYSTEMIC EMBOLISM FROM: TISSUE HEART VALVES 2.0-3.0 ACUTE MYOCARDIAL INFARCTION 2.0-3.0 VALVULAR HEART DISEASE 2.0-3.0 ATRIAL FIBRILLATION 2.0-3.0 MECHANICAL VALVES(HIGH RISK) 2.5-3.5 RECURRENT MYOCARDIAL INFARCTION 2.5-3.5 2 DIAGNOSIS CRITERIA MMB ng/ml Relative Index (RI) NON-AMI < or = 5 N/A MELENDEZ ZONE > 5 < or = 4 AMI > 5 > 4 3 Troponin I Reference Interva l for Siemens [place] LOCI: 99th Percentile= 0.00-0.045 ng/ml Risk Stratification: <= 0.10 ng/ml Decreased Risk for Adverse Clinical Events. 0.10-1.50 ng/ml Increased Risk for Adv erse Clinical Events. Evaluation of additional criterion and/or repeat testing in 2-6 hours is suggested to rule out myocardial damage. >= 1.50 ng/ml Indicative of Myocardial Injury. Procedures Description No Information Available Medical Devices Description No Information Available Encounters Type Date Location Provider Dx Diagnosis Office Visit 03/10/2020 1:30p [facility] [place] [facility] Alberto Nesbitt M. D. F33.9 Major depressive disorder, recurrent, unspecified R74.0 Nonspec elev of levels of tr ansamns & lactic acid dehydrgnse E78.5 Hyperlipidemia, unspecified Assessments Date Code Description Provider 03/10/2020 F33.9 Major depressive disorder, recur rent, unspecified Alberto Nesbitt M.D. 03/10/2020 R74.0 Nonspecific elevatio n of levels of transaminase and lactic acid dehydrogenase [LDH] Alberto Nesbitt M.D. 03/10/2020 E78.5 Hyperlipidemia, [facility] Plan of Treatment Future Appointment(s):* 09/21/2020 8:30 am - Nahid Fowler D.O., FAAFP at [facility] [place] [facility] Functional Status Description No Information Available Mental Status Description No Information Available Referrals Description No Information Available
--- OUTSIDE RECORDS SUMMARY | 2020-09-18 22:38 | CCD | Continuity of Care Document ---
Author Author Sky NESBITT M.D. Organization Unknown Address [address] [place] [id number] Phone [phone] Problems Description No Information Available Social History [...] Height 69.75 inches 5'9.75" Weight 235.00 lb [place] Body Weight 160 lb BMI (Body Mass Index) 34.0 kg/m2 O2 % BldC Oximetry 98 % 08/20/2019 3:01pm BP Systolic 120 mmHg BP Diastolic 72 mmHg Body Temperature 98.9 F Heart Rate 100 /min Respiratory Rate 18 /min Height 69.75 inches 5'9.75" Weight 216.00 lb [place] Body Weight 160 lb BMI (Body Mass Index) 31.2 kg/m2 O2 % BldC Oximetry 96 % Results Test Acquired Date Facility Test Result H/L Range Note CBC With Differential 09/07/2020 [facility] ([facility]) [phone] White Blood Count 5.7 10 Normal 4.0-10.0 [...] 36.0-66.0 Lymph % 33.7 % Normal 24.0-44.0 [place] % 13.1 % High 0.0-5.0 Eos % 2.1 % Normal 0.0-3.0 Baso % 0.5 % Normal 0.0-1.0 Immature Granulocyte % 0.2 % Normal 0-3.0 Nucleated Red Blood Cell % 0.0 % Normal 0-0 Neutrophils # 2.9 10 Normal 1.5-8.5 Lymph # 1.9 10 Normal 1.5-5.0 [place] # 0.7 10 Normal 0.0-0.8 Eos # 0.1 10 Normal 0.0-0.5 Baso # 0.0 10 Normal 0.0-0.2 Procedures Description No Information Available Medical Devices Description No Information Available Encounters Type Date Location Provider Dx Diagnosis Office Visit 03/10/2020 1:30p [place] [facility] Alberto Nesbitt M. D. F33.9 Major depressive disorder, recurrent, unspecified R74.0 Nonspec elev of levels of tr ansamns & lactic acid dehydrgnse E78.5 Hyperlipidemia, unspecified Assessments Date Code Description Provider 03/10/2020 F33.9 Major depressive disorder, recur rent, unspecified Alberto Nesbitt M.D. 03/10/2020 R74.0 Nonspecific elevatio n of levels of transaminase and lactic acid dehydrogenase [LDH] Alberto Nesbitt M.D. 03/10/2020 E78.5 Hyperlipidemia, unspecified [facility] Alberto gomez M.D. Plan of Treatment Future Appointment(s):* 09/21/2020 8:30 am - Nahid Fowler D.O., FAAFP at [facility] [place]Note 2] Functional Status Description No Information Available Mental Status Description No Information Available Referrals Description No Information Available
--- OUTSIDE RECORDS SUMMARY | 2020-09-18 22:38 | CCD | Continuity of Care Document ---
Author Author Sky NESBITT M.D. Organization Unknown Address [address] [place] [id number] Phone [phone] Problems Description No Information Available Social History [...] Height 69.75 inches 5'9.75" Weight 235.00 lb [place] Body Weight 160 lb BMI (Body Mass Index) 34.0 kg/m2 O2 % BldC Oximetry 98 % 08/20/2019 3:01pm BP Systolic 120 mmHg BP Diastolic 72 mmHg Body Temperature 98.9 F Heart Rate 100 /min Respiratory Rate 18 /min Height 69.75 inches 5'9.75" Weight 216.00 lb [place] Body Weight 160 lb BMI (Body Mass Index) 31.2 kg/m2 O2 % BldC Oximetry 96 % Results Test Acquired Date Facility Test Result H/L Range Note CBC With Differential 09/07/2020 [facility] ([facility]) [phone] White Blood Count 5.7 10 Normal 4.0-10.0 [...] 36.0-66.0 Lymph % 33.7 % Normal 24.0-44.0 [place] % 13.1 % High 0.0-5.0 Eos % 2.1 % Normal 0.0-3.0 Baso % 0.5 % Normal 0.0-1.0 Immature Granulocyte % 0.2 % Normal 0-3.0 Nucleated Red Blood Cell % 0.0 % Normal 0-0 Neutrophils # 2.9 10 Normal 1.5-8.5 Lymph # 1.9 10 Normal 1.5-5.0 [place] # 0.7 10 Normal 0.0-0.8 Eos # 0.1 10 Normal 0.0-0.5 Baso # 0.0 10 Normal 0.0-0.2 PT & Aptt 09/07/2020 [facility] ([facility]) [phone] Prothrombin Time 12.5 seconds Normal 12.5-14.3 Inr 0.92 Normal 1 Partial Thromboplastin Time 28.2 seconds Normal 24.2-38.5 1 THERAPUTIC HUMAN INR VALUES INDICATIONS NORMAL RANGES PROPHYLAXIS/TREATMENT OF: VENOUS THROMBOSIS 2.0-3.0 PULMONARY EMBOLISM 2.0-3.0 PREVENTION OF SYSTEMIC EMBOLISM FROM: TISSUE HEART VALVES 2.0-3.0 ACUTE MYOCARDIAL INFARCTION 2.0-3.0 VALVULAR HEART DISEASE 2.0-3.0 ATRIAL FIBRILLATION 2.0-3.0 MECHANICAL VALVES(HIGH RISK) 2.5-3.5 RECURRENT MYOCARDIAL INFARCTION 2.5-3.5 Procedures Description No Information Available Medical Devices Description No Information Available Encounters Type Date Location Provider Dx Diagnosis Office Visit 03/10/2020 1:30p [facility] Alberto Nesbitt M. D. F33.9 Major depressive disorder, recurrent, unspecified R74.0 Nonspec elev of levels of tr ansamns & lactic acid dehydrgnse E78.5 Hyperlipidemia, unspecified Assessments Date Code Description Provider 03/10/2020 F33.9 Major depressive disorder, recur rent, unspecified Alberto Nesbitt M.D. 03/10/2020 R74.0 Nonspecific elevatio n of levels of transaminase and lactic acid dehydrogenase [LDH] Alberto Nesbitt M.D. 03/10/2020 E78.5 Hyperlipidemia, unspecified [facility] Plan of Treatment Future Appointment(s):* 09/21/2020 8:30 am - Nahid Fowler D.O., FAAFP at [facility] Functional Status Description No Information Available Mental Status Description No Information Available Referrals Description No Information Available
--- OUTSIDE RECORDS SUMMARY | 2020-09-18 22:38 | CCD | Continuity of Care Document ---
Author Author Sky NESBITT M.D. Organization Unknown Address [address] [place] [address] Phone [phone] Problems Description No Information Available Social History [...] Height 69.75 inches 5'9.75" Weight 235.00 lb [place] Body Weight 160 lb BMI (Body Mass Index) 34.0 kg/m2 O2 % BldC Oximetry 98 % 08/20/2019 3:01pm BP Systolic 120 mmHg BP Diastolic 72 mmHg Body Temperature 98.9 F Heart Rate 100 /min Respiratory Rate 18 /min Height 69.75 inches 5'9.75" Weight 216.00 lb [place] Body Weight 160 lb BMI (Body Mass Index) 31.2 kg/m2 O2 % BldC Oximetry 96 % Results Test Acquired Date Facility Test Result H/L Range Note Istat Chem8+ Panel 09/07/2020 [facility] ([facility] [place]) [phone] iSTAT HCT 46.0 % Normal 38.0-51.0 iSTAT Glucose 102 mg/dL Normal 70-105 iSTAT Sodium 140 mEq/L Normal 136-145 iSTAT Potassium 4.2 mEq/L Normal 3.5-5.1 iSTAT CA++ 4.9 mg/dL Normal 4.5-5.3 iSTAT Chloride 100 mEq/L Normal 98-109 iSTAT Co2 32.0 MM/L High 23.0-27.0 iSTAT BUN 22 mg/dL Normal 8-26 iSTAT Creatinine 1.0 mg/dL Normal 0.6-1.3 CBC With Differential 09/07/2020 [facility] (Interface) [phone] White Blood Count 5.7 10 Normal 4.0-10.0 [...] 36.0-66.0 Lymph % 33.7 % Normal 24.0-44.0 [place] % 13.1 % High 0.0-5.0 Eos % 2.1 % Normal 0.0-3.0 Baso % 0.5 % Normal 0.0-1.0 Immature Granulocyte % 0.2 % Normal 0-3.0 Nucleated Red Blood Cell % 0.0 % Normal 0-0 Neutrophils # 2.9 10 Normal 1.5-8.5 Lymph # 1.9 10 Normal 1.5-5.0 [place] # 0.7 10 Normal 0.0-0.8 Eos # 0.1 10 Normal 0.0-0.5 Baso # 0.0 10 Normal 0.0-0.2 PT & Aptt 09/07/2020 [facility]) [phone] Prothrombin Time 12.5 seconds Normal 12.5-14.3 Inr 0.92 Normal 1 Partial Thromboplastin Time 28.2 seconds Normal 24.2-38.5 Cardiac Marker Panel 09/07/2020 [facility] ( [facility]) [phone] CPK Creatine Phosphokinase 298 U/L Normal 39-30 8 CK-MB Value Mass 6.3 NG/ML High <3.6 MB/CK Relative Index 2.11 Normal < Or =4 2 Troponin I < 0.02 NG/ML Normal < 0.10 3 Liver Profile 09/07/2020 [facility]) [phone] Ast/Sgot 34 U/L Normal 7-37 Alt/SGPT 54 U/L Normal 12-78 Alkaline Phosphatase 80 U/L Normal 45-117 Bilirubin,Total 1.7 mg/dL High 0.2-1.0 Bilirubin,Direct 0.2 mg/dL Normal 0.0-0.2 Total Protein 7.3 GM/DL Normal 6.4-8.2 Albumin 4.3 GM/DL Normal 3.2-5.2 Albumin/Globulin Ratio 1.4 Normal Laboratory test finding 09/07/2020 [facility] (Interface) [phone] Magnesium Level 2.2 mg/dL Normal 1.8-2.4 FT4&TSH Panel 09/07/2020 [facility]) [phone] Thyroid Stimulating Hormone 0.756 uIU/ML Normal 0. [...] Troponin I Reference Interva l for Siemens [place] LOCI: 99th Percentile= 0.00-0.045 ng/ml Risk Stratification: [...] Provider Dx Diagnosis Office Visit 03/10/2020 1:30p [facility] Alberto Nesbitt M. D. F33.9 Major depressive disorder, recurrent, unspecified R74.0 Nonspec elev of levels of tr ansamns & lactic acid dehydrgnse E78.5 Hyperlipidemia, unspecified Assessments Date Code Description Provider 03/10/2020 F33.9 Major depressive disorder, recur rent, unspecified Alberto Nesbitt M.D. 03/10/2020 R74.0 Nonspecific elevatio n of levels of transaminase and lactic acid dehydrogenase [LDH] Alberto Nesbitt M.D. 03/10/2020 E78.5 Hyperlipidemia, [facility] Plan of Treatment Future Appointment(s):* 09/21/2020 8:30 am - Nahid Fowler D.O., FAAFP at [facility] Functional Status Description No Information Available Mental Status Description No Information Available Referrals Description No Information Available
--- OUTSIDE RECORDS SUMMARY | 2020-09-18 22:39 | CCD ---
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 Name Role Phone Sylvie LORENZANA MD Unavailable [...] Unavailable Unavailable Sylvie LORENZANA MD Unavailable Unavailable Sylvei LORENZANA MD Unavailable Unavailable Sylvie LORENZANA MD Unavailable Unavailable Sylvie LORENZANA MD Unavailable Unavailable Jacqueline Fowler [facility], PA-C Unavailable Unavailabl e Fish, [facility] Unavailable Unavailabl e Fish, [facility] Unavailable Unavailabl e Fish, [facility] Unavailable Unavailabl e Fish, [facility] Unavailable Unavailabl e Fish, [facility] Unavailable Unavailabl e Fish, [facility] Unavailable Unavailabl e Fish, [facility] Unavailable Unavailabl e Fish, [facility] Unavailable Unavailabl e Fish, Jacqueline Medina [facility], PA-C Unavailable Unavailabl e Fish, [facility] Unavailable Unavailabl e Fish, [facility] Unavailable Unavailabl e Fish, [facility], PA-C Unavailable Unavailabl e Fish, [facility], PA-C Unavailable Unavailabl e Fish, [facility], PA-C Unavailable Unavailabl e Fish, [facility], PA-C Unavailable Unavailabl e Fish, [facility], PA-C Unavailable Unavailabl e Fish, [facility], PA-C Unavailable Unavailabl e Fish, [facility], PA-C Unavailable Unavailabl e Fish, [facility], PA-C Unavailable Unavailabl e Fish, [facility], PA-C Unavailable Unavailabl e Fish, [facility], PA-C Unavailable Unavailabl e Fish, [facility], PA-C Unavailable Unavailabl e Fish, [facility], PA-C Unavailable Unavailabl e Fish, [facility], PA-C Unavailable Unavailabl e Fish, [facility], PA-C Unavailable Unavailabl e Fish, [facility], PA-C Unavailable Unavailabl e Fish, [facility], PA-C Unavailable Unavailabl e Fish, [facility], PA-C Unavailable Unavailabl e Fish, [facility], PA-C Unavailable Unavailabl e Fish, [facility], PA-C Unavailable Unavailabl e Fish, [facility], PA-C Unavailable Unavailabl e Fish, [facility], PA-C Unavailable Unavailabl e PeñaCalista Unavailable [...] is protected by Article 27-F of the [facility] Public Health law. If you continue you may have access to information: Regarding HIV / AIDS; Provided by facilities licensed or operated by the [facility] Office of Mental Health; or Provided by the [facility] Office for People With Developmental Disabilities. If such information is present, then the following [facility] mandated warning applies: This information has [...] law may result in a fine or chcf sentence or both. A general authorization for the release of medical or other information is NOT sufficient authorization for further disc losure. Family History Family Member Name Family Member Gender Family Member Status Date o f Status Description Data Source(s) Unknown Male Problem [facility] Unknown Unknown Problem [facility] ([facility]) Encounters Encounter Providers Location Date Indications Data Source(s ) Outpatient Attender: Claire thomas 06/09/2020 09:15:00 AM EST [facility] ([facility]) OFFICE OUTPATIENT NEW 30 MINUTES Attender: Carol RICHARDSON PA-C Physical Therapy 05/30/2020 12:30:00 PM EST [facility] ([facility] ) Outpatient Attender: AMANDA LORENZANA MD [facility] 01:30:00 PM EDT [facility] ([facility] Medications Medication Brand [...] Prednisone 06/09/2020 12:00:00 AM EST active [facility] ([facility]) 20 mg 06/09/2020 12:00:00 AM EST tablet 15 TAKE ONE TABLET BY MOUTH THREE TIMES A DAY FOR 5 DAYS TAKE ONE TABLET BY MOUTH THREE TIMES A DAY FOR 5 DAYS SOLD: 06/09/2020 [facility] No Active Medications 06/09/2020 12:00:00 AM EST completed [facility] ([facility]) Cephalexin 500 MG Oral Capsule CEPHALEXIN [...] Chantix Starting Month Luca Chantix Starting Month [facility] 2019 12:00:00 AM EST active [facility] ([facility] Chantix Continuing Month Luca Chantix Continuing Month [facility] 12:00:00 AM EST active [facility] ([facility] 60 mg 06/29/2019 12:00:00 AM [...] type / Coverage type Policy ID Covered republican ID Covered republican's relationship to beckwith Policy Beckwith Plan Information R [facility] [id number] WI2 [id number] SELF PAY SELF PAY ONLY [id number] SP [id number] PMA MANAGEMENT PAMELA [facility] [id number] SP [id number] PMA MANAGEMENT [facility] [id number] SP [id number] [facility] [id number] WI2 [id number] [facility] O [id number] S [id number] [employer] [id number] [place]2 [id number] [employer] [id number] [place]2 [id number] [employer] [facility] (H[employer]) [id number] Fa jj Dependent [id number] [employer] (H[employer]) [id number] Fa jj Dependent [id number] [employer] Family Dependent [employer] [id number] SPO [id number] [employer] [id number] SP 01 [id number] [employer]ONAS [employer] [place] [id number] SP [id number] WC-PENDING 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 Name Value Range Interpretation Code Description Data Jacqueline rce(s) Supporting Document(s) Laboratory test finding (navigational concept) 102 mg/dL 7 0-105 Normal (applies to non-numeric results) [facility] ([facility] Laboratory test finding (navigational concept) 46.0 % 3 8.0-51.0 Normal (applies to non-numeric results) [facility] ([facility] Laboratory test finding (navigational concept) 4.9 mg/dL 4 .5-5.3 Normal (applies to non-numeric results) [facility] ([facility] Laboratory test finding (navigational concept) 140 meq/L 1 36-145 Normal (applies to non-numeric results) [facility] ([facility] Laboratory test finding (navigational concept) 4.2 meq/L 3 .5-5.1 Normal (applies to non-numeric results) [facility] ([facility] Laboratory test finding (navigational concept) 32.0 MM/L 2 3.0-27.0 Above high normal [facility] ([facility] ) Laboratory test finding (navigational concept) 22 mg/dL 8 -26 Normal (applies to non-numeric results) [facility] ([facility]) Laboratory test finding (navigational concept) 100 meq/L 9 8-109 Normal (applies to non-numeric results) [facility] ([facility] Laboratory test finding (navigational concept) 1.0 mg/dL 0 .6-1.3 Normal (applies to non-numeric results) [facility] ([facility] ID Date Data Source [id number] 09/07/2020 02:46:00 PM EST [facility] ([facility] Name Value Range Interpretation Code Description Data Jacqueline rce(s) Supporting Document(s) Free T4 0.94 ng/dL 0.76-1.46 Normal (applies to non-numeric resul ts) [facility] ([facility] Thyroid Stimulating Hormone 0.756 uIU/ML 0.358-3.740 Norm al (applies to non- numeric results) [facility] ([facility] ) ID Date Data Source [id number] 09/07/2020 02:46:00 PM EST [facility] ([facility] Name Value Range Interpretation Code Description Data Jacqueline rce(s) Supporting Document(s) Magnesium [Mass/volume] in Serum or Plasma 2.2 mg/dL 1.8-2 .4 Normal (applies to non-numeric results) [facility] ([facility]) ID Date Data Source [id number] 09/07/2020 02:46:00 PM EST [facility] ([facility] Name Value Range Interpretation Code Description Data Jacqueline rce(s) Supporting Document(s) Ast/Sgot 34 U/L 7-37 Normal (applies to non-numeric resul ts) [facility] ([facility] Alt/SGPT 54 U/L 12-78 Normal (applies to non-numeric resul ts) [facility] ([facility] Bilirubin,Total 1.7 mg/dL 0.2-1.0 Above high normal [place] [facility] ([facility] Alkaline Phosphatase 80 U/L 45-117 Normal (applies to non-num kassandra results) [facility] ([facility] Bilirubin,Direct 0.2 mg/dL 0.0-0.2 Normal (applies to non-numeric results) [facility] ([facility] Albumin/Globulin Ratio 1.4 Normal (applies to non-n umeric results) [facility] ([facility] Albumin 4.3 GM/DL 3.2-5.2 Normal (applies to non-numeric resul ts) [facility] ([facility] Total Protein 7.3 GM/DL 6.4-8.2 Normal (applies to non-numeric re sults) [facility] ([facility] ID Date Data Source [id number] 09/07/2020 02:46:00 PM EST [facility] ([facility] Name Value Range Interpretation Code Description Data Jacqueline rce(s) Supporting Document(s) CPK Creatine Phosphokinase 298 U/L 39-308 Mikayla l (applies to non-numeric results) [facility] ([facility] ) CK-MB Value Mass 6.3 ng/mL Above high normal M ED[facility] ([facility] MB/CK Relative Index 2.11 Normal (applies to non-num kassandra results) [facility] ([facility] <content>DIAGNOSIS CRITERIA</content>
<content>MMB ng/ml Relative Index (RI)</content>
<content>NON-AMI < or = 5 N/A</content>
<content>MELENDEZ ZONE > 5 < or = 4</content>
<content>AMI > 5 > 4</content>
<content></content> Troponin I Laboratory test result Normal (applies to non-n umeric results) [facility] <content>Troponin I Reference Interval f or Siemens [place] LOCI:</content>
<content></content>
<content>99th Percentile= 0.00-0.045 ng/ml</content>
<content></content>
<content>Risk Stratification:</content>
<content><= 0.10 ng/ml Decreased Risk for Adverse Clinical</content>
<content>Events.</content>
<content>0.10-1.50 ng/ml Increased Risk for Adverse Clinical</content>
<content>Events. Evaluation of additional</content>
<content>criterion and/or repeat testing in 2-6</content>
<content>hours is suggested to rule out myocardial</content>
<content>damage.</content>
<content>>= 1.50 ng/ml Indicative of Myocardial Injury.</content>
<content></content> ID Date Data Source [id number] 09/07/2020 02:46:00 PM EST [facility] ([facility] Name Value Range Interpretation Code Description Data Jacqueline rce(s) Supporting Document(s) Prothrombin Time 12.5 s 12.5-14.3 Normal (applies to non-numeric results) [facility] ([facility] Inr 0.92 Normal (applies to non-numeric resul ts) [facility] ([facility] THERAPUTIC HUMAN INR VALUES INDICATIONS NORMAL RANGES PROPHYLAXIS/TREATMENT OF: VENOUS THROMBOSIS 2.0-3.0 PULMONARY EMBOLISM 2.0-3.0 PREVENTION OF SYSTEMIC EMBOLISM FROM: TISSUE HEART VALVES 2.0-3.0 ACUTE MYOCARDIAL INFARCTION 2.0-3.0 VALVULAR HEART DISEASE 2.0-3.0 ATRIAL FIBRILLATION 2.0-3.0 MECHANICAL VALVES(HIGH RISK) 2.5-3.5 RECURRENT MYOCARDIAL INFARCTION 2.5-3.5 Partial Thromboplastin Time 28.2 s 24.2-38.5 Norm al (applies to non-numeric results) [facility] ([facility] ) ID Date Data Source [id number] 09/07/2020 02:46:00 PM EST [facility] ([facility] Name Value Range Interpretation Code Description Data Jacqueline rce(s) Supporting Document(s) White Blood Count 5.7 10 4.0-10.0 Normal (applies to non-numeri c results) [facility] ([facility] Red Blood Count 5.08 10 4.30-6.10 Normal (applies to non-numeric results) [facility] ([facility] Hematocrit 45.1 % 42.0-52.0 Normal (applies to non-numeric resul ts) [facility] ([facility] Hemoglobin 15.5 g/dL 13.5-17.5 Normal (applies to non-numeric resul ts) [facility] ([facility] Mean Corpuscular Volume 88.8 fl 80.0-96.0 Normal ( applies to non-numeric results) [facility] ([facility] ) Red Cell Distribution Width 12.2 % 11.5-14.5 Norm al (applies to non-numeric results) [facility] ([facility] ) Mean Corpuscular Hemoglobin 30.5 pg 27.0-33.0 Norm al (applies to non-numeric results) [facility] ([facility] ) Mean Corpuscular HGB Conc 34.4 g/dL 32.0-36.5 Normal (applies to non-numeric results) [facility] ([facility] ) Platelet Count, Automated 276 10 150-450 Normal (applies to non-numeric results) [facility] ([facility] ) Neutrophils % 50.4 % 36.0-66.0 Normal (applies to non-numeric re sults) [facility] ([facility] Lymph % 33.7 % 24.0-44.0 Normal (applies to non-numeric resul ts) [facility] ([facility] Eos % 2.1 % 0.0-3.0 Normal (applies to non-numeric resul ts) [facility] ([facility] Gilmer % 13.1 % 0.0-5.0 Above high normal [facility] ([facility] Immature Granulocyte % 0.2 % 0-3.0 Normal (applies to non-n umeric results) [facility] ([facility] Baso % 0.5 % 0.0-1.0 Normal (applies to non-numeric resul ts) [facility] ([facility] Nucleated Red Blood Cell % 0.0 % 0-0 Normal (applies to n on-numeric results) [facility] ([facility] Lymph # 1.9 10 1.5-5.0 Normal (applies to non-numeric resul ts) [facility] ([facility] Neutrophils # 2.9 10 1.5-8.5 Normal (applies to non-numeric re sults) [facility] ([facility] Gilmer # 0.7 10 0.0-0.8 Normal (applies to non-numeric resul ts) [facility] ([facility] Eos # 0.1 10 0.0-0.5 Normal (applies to non-numeric resul ts) [facility] ([facility] Baso # 0.0 10 0.0-0.2 Normal (applies to non-numeric resul ts) [facility] ([facility] ID Date Data Source [id number] 09/04/2020 02:30:00 PM EST [facility] Name Value Range Interpretation Code Description Data Jacqueline rce(s) Supporting Document(s) SARS coronavirus 2 RNA Not Detected [facility] This lab was ordered by [facility] and reported by [facility]. ID Date Data Source [id number] 08/28/2020 07:30:00 AM EST [facility] Name Value Range Interpretation Code Description Data Jacqueline rce(s) Supporting Document(s) SARS coronavirus 2 RNA Not Detected [facility] [place] This lab was ordered by [facility] and reported by [facility]. ID Date Data Source [id number] 08/21/2020 08:00:00 AM EST [facility] Name Value Range Interpretation Code Description Data Jacqueline rce(s) Supporting Document(s) SARS coronavirus 2 RNA Not Detected [facility] [place] This lab was ordered by [facility] and reported by [facility]. ID Date Data Source [id number] 08/17/2020 12:00:00 AM EST [facility] Name Value Range Interpretation Code Description Data Jacqueline rce(s) Supporting Document(s) SARS coronavirus 2 Ag Negative [facility] This lab was ordered by [facility] and reported by [facility]. ID Date Data Source [id number] 08/14/2020 12:35:00 PM EST [facility] Name Value Range Interpretation Code Description Data Jacqueline rce(s) Supporting Document(s) SARS coronavirus 2 RNA Not Detected [facility] [place] This lab was ordered by [facility] and reported by [facility]. ID Date Data Source [id number] 08/10/2020 12:00:00 AM EST [facility] Name Value Range Interpretation Code Description Data Jacqueline rce(s) Supporting Document(s) SARS-CoV2 Rapid Antigen Negative [facility] This lab was ordered by [facility] and reported by [facility]. ID Date Data Source [id number] 08/07/2020 09:00:00 AM EST [facility] Name Value Range Interpretation Code Description Data Jacqueline rce(s) Supporting Document(s) SARS coronavirus 2 RNA Not Detected [facility] [place] This lab was ordered by [facility] and reported by [facility]. ID Date Data Source [id number] 07/31/2020 05:30:00 AM EST [facility] Name Value Range Interpretation Code Description Data Jacqueline rce(s) Supporting Document(s) SARS coronavirus 2 RNA Not Detected [facility] This lab was ordered by [facility] and reported by [facility]. ID Date Data Source [id number] 07/03/2020 12:10:00 PM EST [facility] Name Value Range Interpretation Code Description Data Jacqueline rce(s) Supporting Document(s) SARS coronavirus 2 RNA [facility] This lab was ordered by [facility] and reported by [facility]. ID Date Data Source [id number] 06/14/2020 12:00:00 AM EST [facility] Name Value Range Interpretation Code Description Data Jacqueline rce(s) Supporting Document(s) SARS-CoV2 Rapid Antigen [facility] This lab was ordered by [facility] and reported by [facility]. ID Date Data Source [id number] 06/09/2020 01:35:00 PM EST [facility] Name Value Range Interpretation Code Description Data Jacqueline rce(s) Supporting Document(s) SARS coronavirus 2 RNA [facility] This lab was ordered by [facility] and reported by [facility]. ID Date Data Source [id number] 06/09/2020 12:00:00 AM EST [facility] Name Value Range Interpretation Code Description Data Jacqueline rce(s) Supporting Document(s) SARS coronavirus 2 Ag [facility] This lab was [facility] by [facility] ID Date Data Source [id number] 06/05/2020 08:00:00 AM EST [facility] Name Value Range Interpretation Code Description Data Jacqueline rce(s) Supporting Document(s) SARS coronavirus 2 RNA [facility] This lab was ordered by [facility] and reported by [facility]. ID Date Data Source [id number] 05/29/2020 02:00:00 PM EST [facility] Name Value Range Interpretation Code Description Data Jacqueline rce(s) Supporting Document(s) SARS coronavirus 2 RNA [facility] This lab was ordered by [facility] and reported by [facility]. ID Date Data Source [id number] 05/22/2020 01:00:00 PM EDT [facility] Name Value Range Interpretation Code Description Data Jacqueline rce(s) Supporting Document(s) SARS coronavirus 2 RNA [facility] This lab was ordered by [facility] and reported by [facility]. ID Date Data Source [id number] 05/15/2020 10:28:00 AM EDT [facility] Name Value Range Interpretation Code Description Data Jacqueline rce(s) Supporting Document(s) SARS coronavirus 2 RNA [facility] This lab was ordered by [facility] and reported by [facility]. ID Date Data Source [id number] 05/08/2020 08:00:00 AM EDT [facility] Name Value Range Interpretation Code Description Data Jacqueline rce(s) Supporting Document(s) SARS coronavirus 2 RNA [facility] This lab was ordered by [facility] and reported by [facility]. ID Date Data Source [id number] 05/01/2020 10:00:00 AM EDT [facility] Name Value Range Interpretation Code Description Data Jacqueline rce(s) Supporting Document(s) SARS coronavirus 2 RNA [facility] This lab was ordered by [facility] and reported by [facility]. ID Date Data Source [id number] 04/17/2020 01:15:00 PM EDT [facility] Name Value Range Interpretation Code Description Data Jacqueline rce(s) Supporting Document(s) SARS coronavirus 2 RNA [facility] This lab was ordered by [facility] and reported by [facility]. ID Date Data Source [id number] 04/05/2020 08:00:00 AM EDT [facility] Name Value Range Interpretation Code Description Data Jacqueline rce(s) Supporting Document(s) SARS coronavirus 2 RNA [facility] This lab was ordered by [facility] and reported by [facility]. ID Date Data Source [id number] 03/27/2020 09:32:00 AM EDT [facility] Name Value Range Interpretation Code Description Data Jacqueline rce(s) Supporting Document(s) SARS coronavirus 2 RNA [facility] This lab was ordered by [facility] and reported by [facility]. ID Date Data Source [id number] 03/20/2020 08:34:00 AM EDT [facility] Name Value Range Interpretation Code Description Data Jacqueline rce(s) Supporting Document(s) SARS coronavirus 2 RNA [facility] This lab was ordered by [facility] and reported by [facility]. ID Date Data Source [id number] 03/03/2020 09:30:00 AM EDT [facility] ([facility] Name Value Range Interpretation Code Description Data Jacqueline rce(s) Supporting Document(s) Laboratory test finding (navigational concept) Laboratory test r esult Normal (applies to non-numeric results) [facility] A false negative [...] pathogens. DISCLAIMER: Testing was performed using the [facility] SARS-CoV-2 test. This test was developed and its performance characteristics determined by [facility]. This test has not been FDA cleared [...] or revoked sooner. ID Date Data Source [id number] 02/14/2020 10:00:00 AM EDT [facility] Name Value Range Interpretation Code Description Data Jacqueline rce(s) Supporting Document(s) SARS coronavirus 2 RNA [facility] This lab was ordered by [facility] and reported by [facility]. ID Date Data Source [id number] 02/07/2020 11:02:00 AM EDT [facility] Name Value Range Interpretation Code Description Data Jacqueline rce(s) Supporting Document(s) SARS coronavirus 2 RNA [facility] This lab was ordered by [facility] and reported by [facility]. ID Date Data Source [id number] 01/31/2020 01:10:00 PM EDT [facility] Name Value Range Interpretation Code Description Data Jacqueline rce(s) Supporting Document(s) SARS coronavirus 2 RNA [facility] This lab was ordered by [facility] and reported by [facility]. ID Date Data Source [id number] 01/24/2020 09:06:00 AM EDT [facility] Name Value Range Interpretation Code Description Data Jacqueline rce(s) Supporting Document(s) SARS CORONAVIRUS 2 RNA [facility] This lab was ordered by [facility] and reported by [facility]. ID Date Data Source [id number] 01/17/2020 02:05:00 PM EDT [facility] Name Value Range Interpretation Code Description Data Jacqueline rce(s) Supporting Document(s) SARS CORONAVIRUS 2 RNA [facility] This lab was ordered by [facility] and reported by [facility]. ID Date Data Source [id number] 01/10/2020 06:00:00 AM EDT [facility] Name Value Range Interpretation Code Description Data Jacqueline rce(s) Supporting Document(s) SARS CORONAVIRUS 2 RNA [facility] This lab was ordered by [facility] and reported by [facility]. ID Date Data Source [id number] 01/03/2020 11:25:00 AM EDT [facility] Name Value Range Interpretation Code Description Data Jacqueline rce(s) Supporting Document(s) SARS CORONAVIRUS 2 RNA [facility] This lab was ordered by [facility] and reported by [facility]. ID Date Data Source [id number] 12/30/2019 05:30:00 AM EDT [facility] Name Value Range Interpretation Code Description Data Jacqueline rce(s) Supporting Document(s) SARS CORONAVIRUS 2 RNA [facility] This lab was ordered by [facility] and reported by [facility]. ID Date Data Source [id number] 12/27/2019 05:30:00 AM EDT [facility] Name Value Range Interpretation Code Description Data Jacqueline rce(s) Supporting Document(s) SARS CORONAVIRUS 2 RNA [facility] This lab was ordered by [facility] and reported by [facility]. ID Date Data Source [id number] 12/23/2019 06:12:00 AM EDT [facility] Name Value Range Interpretation Code Description Data Jacqueline rce(s) Supporting Document(s) SARS CORONAVIRUS 2 RNA [facility] This lab was ordered by [facility] and reported by [facility]. ID Date Data Source [id number] 12/21/2019 06:00:00 AM EDT [facility] Name Value Range Interpretation Code Description Data Jacqueline rce(s) Supporting Document(s) SARS CORONAVIRUS 2 RNA [facility] This lab was ordered by [facility] and reported by [facility]. ID Date Data Source [id number] 12/15/2019 11:14:00 AM EDT [facility] Name Value Range Interpretation Code Description Data Jacqueline rce(s) Supporting Document(s) SARS CORONAVIRUS 2 RNA [facility] This lab was ordered by [facility] and reported by [facility]. ID Date Data Source [id number] 12/06/2019 10:29:00 AM EDT [facility] Name Value Range Interpretation Code Description Data Jacqueline rce(s) Supporting Document(s) SARS CORONAVIRUS 2 RNA [facility] This lab was ordered by [facility] and reported by [facility]. Procedure Vital Signs ID Date Data Source UNK Name Value Range Interpretation Code Description Data Source(s) Body weight 235.00 [lb_av] 235.00 [lb_av] MEDEN T ([facility], [facility]) Body temperature 98.4 [degF] 98.4 [degF] MEDENT ([facility], [facility]) Oxygen saturation in Arterial blood by Pulse oximetry 97 % 97 % MEDENT ([facility], [facility]) Respiratory rate 14 /min 14 /min MEDENT ( [facility], [facility]) Heart rate 82 /min 82 /min MEDENT ([facility], [facility]) Diastolic blood pressure 86 mm[Hg] 86 mm[Hg] MEDENT ([facility], [facility]) Systolic blood pressure 136 mm[Hg] 136 mm[Hg] M EDENT ([facility], [facility]) Oxygen saturation in Arterial blood by Pulse oximetry 98 % 98 % MEDENT ([facility] Body mass index (BMI) [Ratio] 34.0 kg/m2 34.0 k g/m2 MEDENT ([facility] [place] body weight 160 [lb_av] 160 [lb_av] MEDEN T ([facility] Body weight 235.00 [lb_av] 235.00 [lb_av] MEDEN T ([facility] Body height 69.75 [in_i] 69.75 [in_i] MEDENT ([facility] 5'9.75" Respiratory rate 18 /min 18 /min MEDENT ( [facility] Heart rate 84 /min 84 /min MEDENT ([facility] Body temperature 97.8 [degF] 97.8 [degF] MEDENT ([facility] Diastolic blood pressure 72 mm[Hg] 72 mm[Hg] MEDENT ([facility] Systolic blood pressure 114 mm[Hg] 114 mm[Hg] M EDENT ([facility] Oxygen saturation in Arterial blood by Pulse oximetry 96 % 96 % MEDENT ([facility] Body mass index (BMI) [Ratio] 31.2 kg/m2 31.2 k g/m2 MEDENT ([facility] [place] body weight 160 [lb_av] 160 [lb_av] MEDEN T ([facility] Body weight 216.00 [lb_av] 216.00 [lb_av] MEDEN T ([facility] Body height 69.75 [in_i] 69.75 [in_i] MEDENT ([facility] 5'9.75" Respiratory rate 18 /min 18 /min MEDYOHAN ( [facility] Heart rate 100 /min 100 /min MEDYOHAN ([facility] Body temperature 98.9 [degF] 98.9 [degF] MEDENT ([facility] Diastolic blood pressure 72 mm[Hg] 72 mm[Hg] CARLY ([facility] Systolic blood pressure 120 mm[Hg] 120 mm[Hg] Donaldo MCGRATH ([facility]
--- NOTE | 2020-09-19 00:01 | REPVR ---
PROCEDURE INFORMATION: Exam: XR Right Hand Exam date and time: 09/18/2020 11:34 PM Age: 35 years old Clinical indication: Injury or trauma; Work related; Swelling (edema); Hand; Right; Injury details: Post 1 week fall TECHNIQUE: Imaging protocol: XR Right hand. Views: 3 or more views. COMPARISON: CR Wrist, complete RIGHT 09/18/2020 11:18:57 PM FINDINGS: Bones/joints: There is no fracture or dislocation. There is mild osteoarthritis involving the right 5th carpometacarpal joint. Soft tissues: Unremarkable. IMPRESSION: No fracture or dislocation of the right hand. Electronically signed by: Nahid Colón On 09/19/2020 00:01:20 AM
--- NOTE | 2020-09-19 00:01 | REPVR ---
PROCEDURE INFORMATION: Exam: XR Right Wrist Exam date and time: 09/18/2020 11:34 PM Age: 35 years old Clinical indication: Injury or trauma; Fall; Work related; Swelling (edema); Wrist; Right TECHNIQUE: Imaging protocol: XR Right wrist. Views: 3 or more views. COMPARISON: CR Hand, complete RIGHT 09/18/2020 11:18:57 PM FINDINGS: Bones/joints: There is no fracture or dislocation of the right wrist. No widening of the scapholunate or lunotriquetral spaces is noted. There is mild osteoarthritis of the right 5th carpometacarpal joint. Soft tissues: Unremarkable. IMPRESSION: No fracture or dislocation of the right wrist. Electronically signed by: Nahid Colón On 09/19/2020 00:01:11 AM
--- OUTSIDE RECORDS SUMMARY | 2020-09-19 01:07 | CCD ---
Author Author [facility] Organization [facility] Address Unknown Phone Unavailable Care Team Providers Care Java Web Architect Name Role Phone Sylvie LORENZANA MD Unavailable [...] Unavailable Sylvie LORENZANA MD Unavailable Unavailable Sylvie LOERNZANA MD Unavailable Unavailable Sylvie LORENZANA MD Unavailable [...] Sylvie LORENZANA MD Unavailable Unavailable Jacqueline Fowler [facility], PA-C Unavailable Unavailabl e Fish, [facility] Unavailable Unavailabl e Fish, [facility] Unavailable Unavailabl e Fish, [facility] Unavailable Unavailabl e Fish, [facility] Unavailable Unavailabl e Fish, [facility] Unavailable Unavailabl e Fish, [facility] Unavailable Unavailabl e Fish, [facility] Unavailable Unavailabl e Fish, [facility] Unavailable Unavailabl e Fish, Jacqueline Medina [facility], PA-C Unavailable Unavailabl e Fish, [facility], [facility] Unavailable Unavailabl e Fish, [facility], [facility] Unavailable Unavailabl e Fish, [facility], PA-C Unavailable Unavailabl e Fish, [facility], PA-C Unavailable Unavailabl e Fish, [facility], PA-C Unavailable Unavailabl e Fish, [facility], PA-C Unavailable Unavailabl e Fish, [facility], PA-C Unavailable Unavailabl e Fish, [facility], PA-C Unavailable Unavailabl e Fish, [facility], PA-C Unavailable Unavailabl e Fish, [facility], PA-C Unavailable Unavailabl e Fish, [facility], PA-C Unavailable Unavailabl e Fish, [facility], PA-C Unavailable Unavailabl e Fish, [facility], PA-C Unavailable Unavailabl e Fish, [facility], PA-C Unavailable Unavailabl e Fish, [facility], PA-C Unavailable Unavailabl e Fish, [facility], PA-C Unavailable Unavailabl e Fish, [facility], PA-C Unavailable Unavailabl e Fish, [facility], PA-C Unavailable Unavailabl e Fish, [facility], PA-C Unavailable Unavailabl e Fish, [facility], PA-C Unavailable Unavailabl e Fish, [facility], PA-C Unavailable Unavailabl e Fish, [facility], PA-C Unavailable Unavailabl e Fish, [facility], PA-C Unavailable Unavailabl e PeñaCalista Unavailable [...] is protected by Article 27-F of the [facility] Public Health law. If you continue you may have access to information: Regarding HIV / AIDS; Provided by facilities licensed or operated by the [facility] Office of Mental Health; or Provided by the [facility] Office for People With Developmental Disabilities. If such information is present, then the following [facility] mandated warning applies: This information has [...] Description Data Source(s) Unknown [facility] Unknown Unknown Problem [facility] ([facility], [facility]) Encounters Encounter Providers Location Date Indications Data Source(s ) Outpatient Attender: Claire thomas 06/09/2020 09:15:00 AM EST [facility] ([facility], [facility]) OFFICE OUTPATIENT NEW 30 MINUTES Attender: Carol RICHARDSON PA-C Physical Therapy 05/30/2020 12:30:00 PM EST [facility] ([facility] ) Outpatient Attender: AMANDA LORENZANA MD [facility] 01:30:00 PM EDT [facility] ([facility] Medications Medication Brand [...] Prednisone 06/09/2020 12:00:00 AM EST active [facility] ([facility]) 20 mg 06/09/2020 12:00:00 AM EST tablet 15 TAKE ONE TABLET BY MOUTH THREE TIMES A DAY FOR 5 DAYS TAKE ONE TABLET BY MOUTH THREE TIMES A DAY FOR 5 DAYS SOLD: 06/09/2020 [facility] No Active Medications 06/09/2020 12:00:00 AM EST completed [facility] ([facility]) Cephalexin 500 MG Oral Capsule CEPHALEXIN 06/05/2020 [...] Chantix Starting Month Luca Chantix Starting Month [facility] 2019 12:00:00 AM EST active MED[facility] ([facility] Chantix Continuing Month Luca Chantix Continuing Month [facility] 12:00:00 AM EST active [facility] ([facility] 60 mg 06/29/2019 12:00:00 [...] type / Coverage type Policy ID Covered alliance party ID Covered alliance party's relationship to beckwith Policy Beckwith Plan Information OTHER 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 [id number] SP [id number] [facility] [id number] WI2 [id number] SELF PAY SELF PAY ONLY [id number] SP [id number] PMA MANAGEMENT PAMELA [facility] [id number] SP [id number] PMA MANAGEMENT PAMELA [facility] [id number] SP [id number] [facility] [id number] [place]2 [id number] [facility] O [id number] S [id number] [employer] [id number] [place] [id number] [employer] [id number] [place] [id number] [employer] [facility] (HMO) [id number] Fa jj Dependent [id number] [employer] (HMO) [id number] Fa jj Dependent [id number] [employer] Commercial Family Dependent [employer] [id number] [facility] [id number] [employer] [id number] SP 01 [id number] YONAS VASQUE[employer] C[employer] [place] [id number] SP [id number] WC-PENDING [id number] SP 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 SP [id number] SELF PAY UNAVAILABLE SP UNAVAILA BLE [facility] [id number] SP [id number] Surgeries/Procedures Procedure Description Date Indications Data Source(s) RADEX FOOT COMPLETE MINIMUM 3 VIEWS 05/30/2020 12:00:0 0 AM EST MED[facility] ([facility]) Results ID Date Data Source [id number] 09/07/2020 02:47:00 PM EST [facility] ([facility] Name Value Range [...] 0 .6-1.3 Normal (applies to non-numeric results) [facility] ID Date Data Source [id number] 09/07/2020 02:46:00 PM EST [facility] ([facility] Name Value Range Interpretation Code Description Data Jacqueline rce(s) Supporting Document(s) Free T4 0.94 ng/dL 0.76-1.46 Normal (applies to non-numeric resul ts) [facility] ([facility] Thyroid Stimulating Hormone 0.756 uIU/ML 0.358-3.740 Norm al (applies to non- numeric results) [facility] ([facility] ) ID Date Data Source [id number] 09/07/2020 02:46:00 PM EST [facility] ([facility] Name Value Range Interpretation Code Description Data Jacqueline rce(s) Supporting Document(s) Magnesium [Mass/volume] in Serum or Plasma 2.2 mg/dL 1.8-2 .4 Normal (applies to non-numeric results) [facility] ([facility]) ID Date Data Source [id number] 09/07/2020 02:46:00 PM EST [facility] ([facility] Name Value Range Interpretation Code Description Data Jacqueline rce(s) Supporting Document(s) Ast/Sgot 34 U/L 7-37 Normal (applies to non-numeric resul ts) [facility] ([facility] Alt/SGPT 54 U/L 12-78 Normal (applies to non-numeric resul ts) [facility] ([facility] Bilirubin,Total 1.7 mg/dL 0.2-1.0 Above high normal [place] [facility] ([facility] Alkaline Phosphatase 80 U/L 45-117 Normal (applies to non-num kassandra results) [facility] ([facility] Bilirubin,Direct 0.2 mg/dL 0.0-0.2 Normal (applies to non-numeric results) [facility] Albumin/Globulin Ratio 1.4 Normal (applies to non-n umeric results) [facility] ([facility] Albumin 4.3 GM/DL 3.2-5.2 Normal (applies to non-numeric resul ts) [facility] ([facility] Total Protein 7.3 GM/DL 6.4-8.2 Normal (applies to non-numeric re sults) [facility] ([facility] ID Date Data Source [id number] 09/07/2020 02:46:00 PM EST [facility] ([facility] Name Value Range Interpretation Code Description Data Jacqueline rce(s) Supporting Document(s) CPK Creatine Phosphokinase 298 U/L 39-308 Mikayla l (applies to non-numeric results) [facility] ([facility] ) CK-MB Value Mass 6.3 ng/mL Above high normal M [facility] ([facility] MB/CK Relative Index 2.11 Normal (applies to non-num kassandra results) [facility] ([facility] <content>DIAGNOSIS CRITERIA</content>
<content>MMB ng/ml Relative Index (RI)</content>
<content>NON-AMI < or = 5 N/A</content>
<content>MELENDEZ ZONE > 5 < or = 4</content>
<content>AMI > 5 > 4</content>
<content></content> Troponin I Laboratory test result Normal (applies to non-n umeric results) [facility] ([facility] <content>Troponin I Reference Interval f or [facility] [place] LOCI:</content>
<content></content>
<content>99th Percentile= 0.00-0.045 ng/ml</content>
<content></content>
<content>Risk Stratification:</content>
<content><= 0.10 ng/ml Decreased Risk for Adverse Clinical</content>
<content>Events.</content>
<content>0.10-1.50 ng/ml Increased Risk for Adverse Clinical</content>
<content>Events. Evaluation of additional</content>
<content>criterion and/or repeat testing in 2-6</content>
<content>hours is suggested to rule out myocardial</content>
<content>damage.</content>
<content>>= 1.50 ng/ml Indicative of Myocardial Injury.</content>
<content></content> ID Date Data Source [id number] 09/07/2020 02:46:00 PM EST [facility] ([facility] Name Value Range Interpretation Code Description Data Jacqueline rce(s) Supporting Document(s) Prothrombin Time 12.5 s 12.5-14.3 Normal (applies to non-numeric results) [facility] ([facility] Inr 0.92 Normal (applies to non-numeric resul ts) [facility] ([facility] THERAPUTIC HUMAN INR VALUES INDICATIONS NORMAL RANGES PROPHYLAXIS/TREATMENT OF: VENOUS THROMBOSIS 2.0-3.0 PULMONARY EMBOLISM 2.0-3.0 PREVENTION OF SYSTEMIC EMBOLISM FROM: TISSUE HEART VALVES 2.0-3.0 ACUTE MYOCARDIAL INFARCTION 2.0-3.0 VALVULAR HEART DISEASE 2.0-3.0 ATRIAL FIBRILLATION 2.0-3.0 MECHANICAL VALVES(HIGH RISK) 2.5-3.5 RECURRENT MYOCARDIAL INFARCTION 2.5-3.5 Partial Thromboplastin Time 28.2 s 24.2-38.5 Norm al (applies to non-numeric results) [facility] ([facility] ) ID Date Data Source [id number] 09/07/2020 02:46:00 PM EST [facility] ([facility] Name Value Range Interpretation Code Description Data Jacqueline rce(s) Supporting Document(s) White Blood Count 5.7 10 4.0-10.0 Normal (applies to non-numeri c results) [facility] ([facility] Red Blood Count 5.08 10 4.30-6.10 Normal (applies to non-numeric results) [facility] ([facility] Hematocrit 45.1 % 42.0-52.0 Normal (applies to non-numeric resul ts) [facility] ([facility] Hemoglobin 15.5 g/dL 13.5-17.5 Normal (applies to non-numeric resul ts) [facility] ([facility] Mean Corpuscular Volume 88.8 fl 80.0-96.0 Normal ( applies to non-numeric results) [facility] ([facility] ) Red Cell Distribution Width 12.2 % 11.5-14.5 Norm al (applies to non-numeric results) [facility] ([facility] ) Mean Corpuscular Hemoglobin 30.5 pg 27.0-33.0 Norm al (applies to non-numeric results) [facility] ([facility] ) Mean Corpuscular HGB Conc 34.4 g/dL 32.0-36.5 Normal (applies to non-numeric results) [facility] ([facility] ) Platelet Count, Automated 276 10 150-450 Normal (applies to non-numeric results) [facility] ([facility] ) Neutrophils % 50.4 % 36.0-66.0 Normal (applies to non-numeric re sults) [facility] ([facility] Lymph % 33.7 % 24.0-44.0 Normal (applies to non-numeric resul ts) [facility] ([facility] Eos % 2.1 % 0.0-3.0 Normal (applies to non-numeric resul ts) [facility] ([facility] [place] % 13.1 % 0.0-5.0 Above high normal [...] Normal (applies to non-numeric resul ts) [facility] ([facility] Neutrophils # 2.9 10 1.5-8.5 Normal (applies to non-numeric re sults) [facility] ([facility] [place] # 0.7 10 0.0-0.8 Normal (applies to non-numeric resul ts) [facility] Eos # 0.1 10 0.0-0.5 Normal (applies to non-numeric resul ts) [facility] ([facility] Baso # 0.0 10 0.0-0.2 Normal (applies to non-numeric resul ts) [facility] ([facility] ID Date Data Source [id number] 09/04/2020 02:30:00 PM EST [facility] Name Value Range Interpretation Code Description Data Jacqueline rce(s) Supporting Document(s) SARS coronavirus 2 RNA Not Detected [facility] This lab was ordered by [facility] and reported by [facility]. ID Date Data Source [id number] 08/28/2020 07:30:00 AM EST [facility] Name Value Range Interpretation Code Description Data Jacqueline rce(s) Supporting Document(s) SARS coronavirus 2 RNA Not Detected [facility] [place] This lab was ordered by [facility] and reported by [facility]. ID Date Data Source [id number] 08/21/2020 08:00:00 AM EST [facility] Name Value Range Interpretation Code Description Data Jacqueline rce(s) Supporting Document(s) SARS coronavirus 2 RNA Not Detected [facility] [place] This lab was ordered by [facility] and reported by [facility]. ID Date Data Source [id number] 08/17/2020 12:00:00 AM EST [facility] Name Value Range Interpretation Code Description Data Jacqueline rce(s) Supporting Document(s) SARS coronavirus 2 Ag Negative [facility] This lab was ordered by [facility] and reported by [facility]. ID Date Data Source [id number] 08/14/2020 12:35:00 PM EST [facility] Name Value Range Interpretation Code Description Data Jacqueline rce(s) Supporting Document(s) SARS coronavirus 2 RNA Not Detected [facility] [place] This lab was ordered by [facility] and reported by [facility]. ID Date Data Source [id number] 08/10/2020 12:00:00 AM EST [facility] Name Value Range Interpretation Code Description Data Jacqueline rce(s) Supporting Document(s) SARS-CoV2 Rapid Antigen Negative [facility] This lab was ordered by [facility] and reported by [facility]. ID Date Data Source [id number] 08/07/2020 09:00:00 AM EST [facility] Name Value Range Interpretation Code Description Data Jacqueline rce(s) Supporting Document(s) SARS coronavirus 2 RNA Not Detected [facility] [place] This lab was ordered by [facility] and reported by [facility]. ID Date Data Source [id number] 07/31/2020 05:30:00 AM EST [facility] Name Value Range Interpretation Code Description Data Jacqueline rce(s) Supporting Document(s) SARS coronavirus 2 RNA Not Detected [facility] [place] This lab was ordered by [facility] and reported by [facility]. ID Date Data Source [id number] 07/03/2020 12:10:00 PM EST [facility] Name Value Range Interpretation Code Description Data Jacqueline rce(s) Supporting Document(s) SARS coronavirus 2 RNA [facility] This lab was ordered by [facility] and reported by [facility]. ID Date Data Source [id number] 06/14/2020 12:00:00 AM EST [facility] Name Value Range Interpretation Code Description Data Jacqueline rce(s) Supporting Document(s) SARS-CoV2 Rapid Antigen [facility] This lab was ordered by [facility] and reported by [facility]. ID Date Data Source [id number] 06/09/2020 01:35:00 PM EST [facility] Name Value Range Interpretation Code Description Data Jacqueline rce(s) Supporting Document(s) SARS coronavirus 2 RNA [facility] This lab was ordered by [facility] and reported by [facility]. ID Date Data Source [id number] 06/09/2020 12:00:00 AM EST [facility] Name Value Range Interpretation Code Description Data Jacqueline rce(s) Supporting Document(s) SARS coronavirus 2 Ag [facility] This lab was ordered by [facility] and reported by [facility]. ID Date Data Source [id number] 06/05/2020 08:00:00 AM EST [facility] Name Value Range Interpretation Code Description Data Jacqueline rce(s) Supporting Document(s) SARS coronavirus 2 RNA [facility] This lab was ordered by [facility] and reported by [facility]. ID Date Data Source [id number] 05/29/2020 02:00:00 PM EST [facility] Name Value Range Interpretation Code Description Data Jacqueline rce(s) Supporting Document(s) SARS coronavirus 2 RNA [facility] This lab was ordered by [facility] and reported by [facility]. ID Date Data Source [id number] 05/22/2020 01:00:00 PM EDT [facility] Name Value Range Interpretation Code Description Data Jacqueline rce(s) Supporting Document(s) SARS coronavirus 2 RNA [facility] This lab was ordered by [facility] and reported by [facility]. ID Date Data Source [id number] 05/15/2020 10:28:00 AM EDT [facility] Name Value Range Interpretation Code Description Data Jacqueline rce(s) Supporting Document(s) SARS coronavirus 2 RNA [facility] This lab was ordered by [facility] and reported by [facility]. ID Date Data Source [id number] 05/08/2020 08:00:00 AM EDT [facility] Name Value Range Interpretation Code Description Data Jacqueline rce(s) Supporting Document(s) SARS coronavirus 2 RNA [facility] This lab was ordered by [facility] and reported by [facility]. ID Date Data Source [id number] 05/01/2020 10:00:00 AM EDT [facility] Name Value Range Interpretation Code Description Data Jacqueline rce(s) Supporting Document(s) SARS coronavirus 2 RNA [facility] This lab was ordered by [facility] and reported by [facility]. ID Date Data Source [id number] 04/17/2020 01:15:00 PM EDT [facility] Name Value Range Interpretation Code Description Data Jacqueline rce(s) Supporting Document(s) SARS coronavirus 2 RNA [facility] This lab was ordered by [facility] and reported by [facility]. ID Date Data Source [id number] 04/05/2020 08:00:00 AM EDT [facility] Name Value Range Interpretation Code Description Data Jacqueline rce(s) Supporting Document(s) SARS coronavirus 2 RNA [facility] This lab was ordered by [facility] and reported by [facility]. ID Date Data Source [id number] 03/27/2020 09:32:00 AM EDT [facility] Name Value Range Interpretation Code Description Data Jacqueline rce(s) Supporting Document(s) SARS coronavirus 2 RNA [facility] This lab was ordered by [facility] and reported by [facility]. ID Date Data Source [id number] 03/20/2020 08:34:00 AM EDT [facility] Name Value Range Interpretation Code Description Data Jacqueline rce(s) Supporting Document(s) SARS coronavirus 2 RNA [facility] This lab was ordered by [facility] and reported by [facility]. ID Date Data Source [id number] 03/03/2020 09:30:00 AM EDT [facility] ([facility] Name Value Range [...] pathogens. DISCLAIMER: Testing was performed using the [employer] SARS-CoV-2 test. This test was developed and its performance characteristics determined by [employer]. This test has not been FDA cleared [...] or revoked sooner. ID Date Data Source [id number] 02/14/2020 10:00:00 AM EDT [facility] Name Value Range Interpretation Code Description Data Jacqueline rce(s) Supporting Document(s) SARS coronavirus 2 RNA [facility] This lab was ordered by [facility] and reported by [facility]. ID Date Data Source [id number] 02/07/2020 11:02:00 AM EDT [facility] Name Value Range Interpretation Code Description Data Jacqueline rce(s) Supporting Document(s) SARS coronavirus 2 RNA [facility] This lab was ordered by [facility] and reported by [facility]. ID Date Data Source [id number] 01/31/2020 01:10:00 PM EDT [facility] Name Value Range Interpretation Code Description Data Jacqueline rce(s) Supporting Document(s) SARS coronavirus 2 RNA [facility] This lab was ordered by [facility] and reported by [facility]. ID Date Data Source [id number] 01/24/2020 09:06:00 AM EDT [facility] Name Value Range Interpretation Code Description Data Jacqueline rce(s) Supporting Document(s) SARS CORONAVIRUS 2 RNA [facility] This lab was ordered by [facility] and reported by [facility]. ID Date Data Source [id number] 01/17/2020 02:05:00 PM EDT [facility] Name Value Range Interpretation Code Description Data Jacqueline rce(s) Supporting Document(s) SARS CORONAVIRUS 2 RNA [facility] This lab was ordered by [facility] and reported by [facility]. ID Date Data Source [id number] 01/10/2020 06:00:00 AM EDT [facility] Name Value Range Interpretation Code Description Data Jacqueline rce(s) Supporting Document(s) SARS CORONAVIRUS 2 RNA [facility] This lab was ordered by [facility] and reported by [facility]. ID Date Data Source [id number] 01/03/2020 11:25:00 AM EDT [facility] Name Value Range Interpretation Code Description Data Jacqueline rce(s) Supporting Document(s) SARS CORONAVIRUS 2 RNA [facility] This lab was ordered by [facility] and reported by [facility]. ID Date Data Source [id number] 12/30/2019 05:30:00 AM EDT [facility] Name Value Range Interpretation Code Description Data Jacqueline rce(s) Supporting Document(s) SARS CORONAVIRUS 2 RNA [facility] This lab was ordered by [facility] and reported by [facility]. ID Date Data Source [id number] 12/27/2019 05:30:00 AM EDT [facility] Name Value Range Interpretation Code Description Data Jacqueline rce(s) Supporting Document(s) SARS CORONAVIRUS 2 RNA [facility] This lab was ordered by [facility] and reported by [facility]. ID Date Data Source [id number] 12/23/2019 06:12:00 AM EDT [facility] Name Value Range Interpretation Code Description Data Jacqueline rce(s) Supporting Document(s) SARS CORONAVIRUS 2 RNA [facility] This lab was ordered by [facility] and reported by [facility]. ID Date Data Source [id number] 12/21/2019 06:00:00 AM EDT [facility] Name Value Range Interpretation Code Description Data Jacqueline rce(s) Supporting Document(s) SARS CORONAVIRUS 2 RNA [facility] This lab was ordered by [facility] and reported by [facility]. ID Date Data Source [id number] 12/15/2019 11:14:00 AM EDT [facility] Name Value Range Interpretation Code Description Data Jacqueline rce(s) Supporting Document(s) SARS CORONAVIRUS 2 RNA [facility] This lab was ordered by [facility] and reported by [facility]. ID Date Data Source [id number] 12/06/2019 10:29:00 AM EDT [facility] Name Value Range Interpretation Code Description Data Jacqueline rce(s) Supporting Document(s) SARS CORONAVIRUS 2 RNA [facility] This lab was ordered by [facility] and reported by [facility]. Procedure Vital Signs ID Date Data Source [id number] Name Value Range Interpretation Code Description Data Source(s) Body weight 235.00 [lb_av] 235.00 [lb_av] [facility] T ([facility], [facility]) Body temperature 98.4 [degF] 98.4 [degF] [facility] ([facility] [place], [facility]) Oxygen saturation in Arterial blood by Pulse oximetry 97 % 97 % [facility] ([facility] [facility], [place], [facility]) Respiratory rate 14 /min 14 /min MEDENT ( [facility], [place], [facility]) Heart rate 82 /min 82 /min MEDENT ([facility], [facility]) Diastolic blood pressure 86 mm[Hg] 86 mm[Hg] MEDENT ([facility], [facility]) Systolic blood pressure 136 mm[Hg] 136 mm[Hg] M EDENT ([facility], [place], [facility]) Oxygen saturation in Arterial blood by Pulse oximetry 98 % 98 % MEDENT ([facility] Body mass index (BMI) [Ratio] 34.0 kg/m2 34.0 k g/m2 MEDENT ([facility] [place] body weight 160 [lb_av] 160 [lb_av] MEDEN T ([facility] Body weight 235.00 [lb_av] 235.00 [lb_av] MEDEN T ([facility] Body height 69.75 [in_i] 69.75 [in_i] MEDENT ([facility] 5'9.75" Respiratory rate 18 /min 18 /min MEDENT ( [facility] Heart rate 84 /min 84 /min MEDENT ([facility] Body temperature 97.8 [degF] 97.8 [degF] MEDENT ([facility] Diastolic blood pressure 72 mm[Hg] 72 mm[Hg] MEDENT ([facility] Systolic blood pressure 114 mm[Hg] 114 mm[Hg] M EDENT ([facility] Oxygen saturation in Arterial blood by Pulse oximetry 96 % 96 % MEDENT ([facility] Body mass index (BMI) [Ratio] 31.2 kg/m2 31.2 k g/m2 MEDENT ([facility] [place] body weight 160 [lb_av] 160 [lb_av] MEDEN T ([facility] Body weight 216.00 [lb_av] 216.00 [lb_av] MEDEN T ([facility] Body height 69.75 [in_i] 69.75 [in_i] MEDENT ( [facility] 5'9.75" Respiratory rate 18 /min 18 /min MEDENT ( [facility] Heart rate 100 /min 100 /min MEDENT ([facility] Body temperature 98.9 [degF] 98.9 [degF] MEDENT ([facility] Diastolic blood pressure 72 mm[Hg] 72 mm[Hg] CARLY ([facility] Systolic blood pressure 120 mm[Hg] 120 mm[Hg] Donaldo MCGRATH ([facility]
[2020-09-19] MEDS ORDERED: AUGM875T28 PO (01:19)
[2020-09-19 01:36] VITALS: BP 154/62
== END 2020-09-19 01:38 | disposition home or self-care (01) ==
LOC: M ED 22:32
DX: R22.31 Localized swelling, mass and lump, right upper limb (principal); F17.200 Nicotine dependence, unspecified, uncomplicated; Z79.899 Other long term (current) drug therapy

== ENCOUNTER → 2020-09-22 | Outpatient (CLI) | payer OTHER ==
--- NOTE | 2020-09-22 09:59 | REP ---
INDICATION: ABNORMAL RESULTS OF LIVER FUNCTION STUDIES. COMPARISON: None. TECHNIQUE: Real-time sonographic evaluation of right upper quadrant performed. FINDINGS: The gallbladder demonstrates no evidence of intraluminal sludge or calculi, wall thickening or pericholecystic fluid. There is no intrahepatic or extrahepatic biliary dilatation, common bile duct measures 3 mm in maximum diameter. The liver demonstrates homogeneous echotexture with no gross mass. Pancreas is grossly unremarkable, not optimally seen due to overlying bowel gas. The right kidney demonstrates no hydronephrosis, with a normal size of 11.4 cm in length. No free fluid is seen. IMPRESSION: Negative right upper quadrant ultrasound. <Electronically signed by Antonio Aldrich > 09/22/20 [id number]
== END ==
LOC: M RAD 09:05
PROVIDERS: ATTEND Family Medicine
DX: R94.5 Abnormal results of liver function studies (principal)

== ENCOUNTER 2021-02-08 15:50 | Emergency (ER) | payer OTHER ==
[~2021-02-08] VITALS: Ht 175.3 cm; Wt 99.1 kg
[2021-02-08 15:53] VITALS: BP 161/94
[2021-02-08] MEDS ORDERED: CEFU1TAB22 PO (16:02)
[2021-02-08] MEDS ORDERED: ALBU8.5H INH (16:02)
== END 2021-02-08 19:00 | disposition left against medical advice (07) ==
LOC: M ED 15:50
DX: Z53.21 Procedure and treatment not carried out due to patient leaving prior to being seen by health care provider (principal)

== ENCOUNTER 2021-02-19 02:10 | Emergency (ER) | payer OTHER ==
[~2021-02-19] VITALS: Ht 175.3 cm; Wt 104.0 kg
[~2021-02-19 02:10] MED LIST changes: +ALBU8.5H INH; +CEFU1TAB22 PO
--- NOTE | 2021-02-19 03:57 | REPVR ---
PROCEDURE INFORMATION: Exam: XR Right Hand Exam date and time: 02/19/2021 3:04 AM Age: 35 years old Clinical indication: Pain; Hand; Right; Additional info: Right hand pain TECHNIQUE: Imaging protocol: XR Right hand. Views: 3 or more views. COMPARISON: 1. CR Hand, complete 2020-09-18 23:18 2. 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 No acute fracture or dislocation. Soft tissues: Normal. IMPRESSION: No acute osseous abnormality. Electronically signed by: Sean Hernandez On 02/19/2021 03:56:44 AM
[2021-02-19 04:23] LABS: BASO % 0.3 % (0.0-1.0); EOS # 0.1 10^3/uL (0.0-0.5); EOS % 1.3 % (0.0-3.0); HEMATOCRIT 43.2 % (42.0-52.0); HEMOGLOBIN 14.4 g/dl (13.5-17.5); LYMPH # 1.9 10^3/uL (1.5-5.0); LYMPH % 27.3 % (24.0-44.0); MEAN CORPUSCULAR HEMOGLOBIN 29.6 pg (27.0-33.0); MEAN CORPUSCULAR HGB CONC 33.3 g/dl (32.0-36.5); MEAN CORPUSCULAR VOLUME 88.9 fl (80.0-96.0); MONO # 0.7 10^3/uL (0.0-0.8); MONO % 9.7 % (2.0-8.0); NEUTROPHILS # 4.4 10^3/uL (1.5-8.5); NEUTROPHILS % 61.1 % (36.0-66.0); PLATELET COUNT, AUTOMATED 252 10^3/uL (150-450); RED BLOOD COUNT 4.86 10^6/uL (4.30-6.10); WHITE BLOOD COUNT 7.1 10^3/uL (4.0-10.0)
[2021-02-19 04:45] LABS: BLOOD UREA NITROGEN 15 MG/DL (7-18); CALCIUM LEVEL 8.6 MG/DL (8.5-10.1); CARBON DIOXIDE LEVEL 29 MEQ/L (21-32); CHLORIDE LEVEL 106 MEQ/L (98-107); GLOMERULAR FILTRATION RATE > 60.0 (>60); GLUCOSE, FASTING 97 MG/DL (70-100); POTASSIUM SERUM 4.3 MEQ/L (3.5-5.1); SODIUM LEVEL 139 MEQ/L (136-145)
[2021-02-19 04:52] LABS: ERYTHROCYTE SEDIMENTATION RATE 4 mm/hr (0-15)
[2021-02-19 06:05] VITALS: BP 132/79
--- NOTE | 2021-02-19 08:24 | REP ---
INDICATION: RUE swelling r/o dvt. Repeat dictation. Preliminary report is provided at the time of the exam by venancio COREAS. COMPARISON: None. TECHNIQUE: Right upper extremity duplex venous ultrasound. FINDINGS: The internal jugular, axillary, brachial, basilic, and cephalic veins are anechoic and compressible in the right upper extremity. Color flow imaging is homogeneous. Spectral Doppler interrogation is unremarkable. Venous spectral Doppler waveforms are recorded in the proximal right and left subclavian veins. There is symmetric normal pulsatility and respiratory phasicity. There is no evidence of right upper extremity venous thrombosis. IMPRESSION: Negative right upper extremity duplex venous ultrasound. No evidence of venous thrombosis. <Electronically signed by Chicho Altamirano > 02/19/21 [id number]
== END 2021-02-19 06:13 | disposition home or self-care (01) ==
LOC: M ED 02:10
DX: M79.641 Pain in right hand (principal); F32.9 Major depressive disorder, single episode, unspecified; F17.200 Nicotine dependence, unspecified, uncomplicated

== ENCOUNTER 2021-05-03 22:55 | Emergency (ER) | payer OTHER ==
[~2021-05-03] VITALS: Ht 175.3 cm; Wt 101.4 kg
[2021-05-04] MEDS ORDERED: NAPROXEN 250 MG TAB PO ONE (02:10)
[2021-05-04] MEDS ORDERED: NAPR-837 PO (02:11)
[2021-05-04 02:30] VITALS: BP 126/76
--- NOTE | 2021-05-04 07:53 | REP ---
INDICATION: injury. COMPARISON: None TECHNIQUE: Four views FINDINGS: There is no acute fracture, dislocation, subluxation, or joint effusion. IMPRESSION: Within normal limits <Electronically signed by Cheo Caceres > 05/04/21 0749
== END 2021-05-04 02:55 | disposition home or self-care (01) ==
LOC: M ED 22:55
DX: M25.521 Pain in right elbow (principal); F17.200 Nicotine dependence, unspecified, uncomplicated; Z79.899 Other long term (current) drug therapy

== ENCOUNTER → 2021-10-17 | Outpatient (CLI) | payer OTHER ==
[~2021-10-17] MED LIST changes: +NAPR-837 PO
== END ==
LOC: M RAD 14:55
PROVIDERS: ATTEND Physician Assistant Medical
DX: R05.9 Cough, unspecified (principal); R50.9 Fever, unspecified

== ENCOUNTER 2022-08-13 20:17 | Emergency (ER) | payer OTHER, SELFPAY ==
[~2022-08-13] VITALS: Ht 175.3 cm; Wt 103.4 kg
[2022-08-13 20:18] VITALS: BP 132/77
== END 2022-08-13 22:25 | disposition left against medical advice (07) ==
LOC: M ED 20:42
DX: Z53.21 Procedure and treatment not carried out due to patient leaving prior to being seen by health care provider (principal)

== ENCOUNTER 2022-08-14 07:44 | Emergency (ER) | payer OTHER ==
[~2022-08-14] VITALS: Ht 175.3 cm; Wt 103.1 kg
[2022-08-14 07:45] VITALS: BP 132/86
[2022-08-14 10:10] LABS: BASO % 0.3 % (0.0-1.0); EOS # 0.2 10^3/uL (0.0-0.5); EOS % 2.6 % (0.0-3.0); HEMATOCRIT 46.7 % (42.0-52.0); HEMOGLOBIN 15.5 g/dl (13.5-17.5); LYMPH # 2.2 10^3/uL (1.5-5.0); MEAN CORPUSCULAR HEMOGLOBIN 29.7 pg (27.0-33.0); MEAN CORPUSCULAR HGB CONC 33.2 g/dl (32.0-36.5); MEAN CORPUSCULAR VOLUME 89.5 fl (80.0-96.0); MONO # 0.6 10^3/uL (0.0-0.8); MONO % 9.7 % (2.0-8.0); NEUTROPHILS # 2.9 10^3/uL (1.5-8.5); NEUTROPHILS % 49.2 % (36.0-66.0); PLATELET COUNT, AUTOMATED 282 10^3/uL (150-450); RED BLOOD COUNT 5.22 10^6/uL (4.30-6.10); WHITE BLOOD COUNT 5.8 10^3/uL (4.0-10.0)
[2022-08-14 10:33] LABS: LIPASE 25 U/L (12-53)
[2022-08-14 10:35] LABS: ALBUMIN 4.3 G/DL (3.2-5.2); ALKALINE PHOSPHATASE 64 U/L (46-116); ALT/SGPT 43 U/L (7.0-40); AST/SGOT 22 U/L (<34); BILIRUBIN,DIRECT 0.2 MG/DL (<0.4); BILIRUBIN,TOTAL 0.6 MG/DL (0.3-1.2); BLOOD UREA NITROGEN 10 MG/DL (9-23); CALCIUM LEVEL 9.3 MG/DL (8.5-10.1); CARBON DIOXIDE LEVEL 31 MMOL/L (20-31); CHLORIDE LEVEL 106 MMOL/L (98-107); CREATININE FOR GFR 0.93 MG/DL (0.70-1.30); GLOMERULAR FILTRATION RATE > 60.0 (>60); GLUCOSE, FASTING 100 MG/DL (60-100); POTASSIUM SERUM 4.5 MMOL/L (3.5-5.1); SODIUM LEVEL 142 MMOL/L (136-145); TOTAL PROTEIN 7.2 G/DL (5.7-8.2)
[2022-08-14] MEDS ORDERED: KETOROLAC 30 MG/ML 1ML VIAL IV ONE (11:20)
[2022-08-14] MEDS ORDERED: ISOVUE-370 76% 100ML VIAL As Ordered ONE ×2 (11:24→12:22)
== END 2022-08-14 13:30 | disposition home or self-care (01) ==
LOC: M ED 10:56
DX: R10.31 Right lower quadrant pain (principal); F17.200 Nicotine dependence, unspecified, uncomplicated; Z79.1 Long term (current) use of non-steroidal anti-inflammatories (NSAID); Z79.83 Long term (current) use of bisphosphonates

== ENCOUNTER 2022-09-03 06:10 | Emergency (ER) | payer OTHER ==
[~2022-09-03] VITALS: Ht 175.3 cm; Wt 103.7 kg
[2022-09-03 06:12] VITALS: BP 140/82
[2022-09-03] MEDS ORDERED: KETOROLAC 60MG 2ML VIAL IM ONE (08:35)
[2022-09-03] MEDS ORDERED: KETO10TAB PO (08:44)
== END 2022-09-03 09:07 | disposition home or self-care (01) ==
LOC: M ED 06:10
DX: S42.115A Nondisplaced fracture of body of scapula, left shoulder, initial encounter for closed fracture (principal); W01.0XXA Fall on same level from slipping, tripping and stumbling without subsequent striking against object, initial encounter; Z79.83 Long term (current) use of bisphosphonates; Z79.1 Long term (current) use of non-steroidal anti-inflammatories (NSAID); Z79.899 Other long term (current) drug therapy; Y99.0 Civilian activity done for income or pay
CPT/HCPCS: 73030; 96372; 99282; J1885

== ENCOUNTER → 2024-04-22 | Outpatient (CLI) | payer OTHER ==
[~2024-04-22] MED LIST changes: +KETO10TAB PO
[2024-04-22 08:42] LABS: ALBUMIN 3.9 G/DL (3.2-5.2); ALKALINE PHOSPHATASE 59 U/L (46-116); ALT/SGPT 52 U/L (7.0-40); AST/SGOT 24 U/L (<34); BILIRUBIN,TOTAL 0.8 MG/DL (0.3-1.2); BLOOD UREA NITROGEN 8 MG/DL (9-23); CALCIUM LEVEL 9.3 MG/DL (8.5-10.1); CARBON DIOXIDE LEVEL 29 MMOL/L (20-31); CHLORIDE LEVEL 106 MMOL/L (98-107); CREATININE FOR GFR 0.95 MG/DL (0.70-1.30); GLOMERULAR FILTRATION RATE > 60.0 (>60); GLUCOSE, FASTING 119 MG/DL (60-100); POTASSIUM SERUM 4.3 MMOL/L (3.5-5.1); SODIUM LEVEL 138 MMOL/L (136-145)
== END ==
LOC: M LAB 07:11
PROVIDERS: ATTEND Internal Medicine
DX: R74.01 Elevation of levels of liver transaminase levels (principal)

== ENCOUNTER → 2024-07-07 | Outpatient (REF) | payer OTHER ==
[~2024-07-07] MED LIST changes: -CYCL5TAB PO; +CYCL5TAB4 PO
== END ==
LOC: M LAB REF 16:23
PROVIDERS: ATTEND Physician Assistant
DX: J02.9 Acute pharyngitis, unspecified (principal)

== ENCOUNTER → 2024-10-06 | Outpatient (CLI) | payer OTHER ==
[~2024-10-06] MED LIST changes: +ALKACAP5 PO; +BENZ200C70 PO; +EXCETAB32 PO
[2024-10-06 16:16] LABS: ALBUMIN 4.4 G/DL (3.2-5.2); ALKALINE PHOSPHATASE 63 U/L (40-129); ALT/SGPT 55 U/L (7.0-40); AST/SGOT 26 U/L (<34); BILIRUBIN,TOTAL 1.2 MG/DL (0.3-1.2); BLOOD UREA NITROGEN 11 MG/DL (9-23); CALCIUM LEVEL 9.9 MG/DL (8.5-10.1); CARBON DIOXIDE LEVEL 29 MMOL/L (20-31); CHLORIDE LEVEL 104 MMOL/L (98-107); CHOLESTEROL LEVEL 217 MG/DL (<200); CREATININE FOR GFR 1.01 MG/DL (0.70-1.30); GLOMERULAR FILTRATION RATE > 60.0 (>60); GLUCOSE, FASTING 88 MG/DL (60-100); HDL CHOLESTEROL 42.5 MG/DL (>40); LDL CHOLESTEROL 143.9 MG/DL (<100); NON-HDL-C 174.5 MG/DL; POTASSIUM SERUM 4.7 MMOL/L (3.5-5.1); SODIUM LEVEL 143 MMOL/L (136-145); TOTAL PROTEIN 7.9 G/DL (5.7-8.2); TRIGLYCERIDES LEVEL 153 MG/DL (<150)
== END ==
LOC: M LAB 14:51
PROVIDERS: ATTEND Internal Medicine
DX: R74.01 Elevation of levels of liver transaminase levels (principal)

== ENCOUNTER 2024-10-07 13:12 | Emergency (ER) | payer OTHER ==
[~2024-10-07] VITALS: Ht 175.3 cm; Wt 114.7 kg
[~2024-10-07 13:12] MED LIST changes: -ALKACAP5 PO; -BENZ200C70 PO; -EXCETAB32 PO
[2024-10-07] MEDS ORDERED: EXCETAB32 PO (13:20)
[2024-10-07] MEDS ORDERED: ALKACAP5 PO (13:20)
[2024-10-07] MEDS ORDERED: BENZ200C70 PO (16:41)
[2024-10-07] MEDS: BENZONATATE 100MG CAPSULE PO ONE (16:41)
[2024-10-07 16:46] VITALS: BP 121/73; TEMP 96.9; O2SAT 98
== END 2024-10-07 16:48 | disposition home or self-care (01) ==
LOC: M ED 13:12
DX: J06.9 Acute upper respiratory infection, unspecified (principal); E78.5 Hyperlipidemia, unspecified; Z87.891 Personal history of nicotine dependence